=== PATIENT | male | born 1940 | race Caucasian/White ===

== ENCOUNTER 2024-04-29 15:52 | Emergency (ER) | payer MEDICARE, SELFPAY ==
[2024-04-29 16:00] VITALS: BP 154/68; PULSE 88; RESP 18; TEMP 36.6; O2SAT 98; BMI 27.7
--- NOTE | 2024-04-29 16:26 | CRLHL7_ITS ---
For Patients: As a result of the Century Cures Act, medical imaging exams and procedure reports are released immediately into your electronic medical record. You may view this report before your referring provider. If you have questions, please contact your health care provider. INDICATION: Concerns for pneumonia. TECHNIQUE: CT chest without contrast. COMPARISON: None. FINDINGS: Lungs and pleura: Focal right lower lobe mixed solid and ground-glass consolidation. Trace right pleural effusion. Multiple right lower lobe pulmonary nodules with largest measuring 2.2 centimeters (series 5/image 83) which have a somewhat tubular appearance which could suggest chronic bronchial mucous impaction. No pneumothoraces. Heart and vasculature: Heart size is normal. Coronary artery calcifications. Thoracic aorta and pulmonary artery are normal in caliber. Lymph nodes/mediastinum: Moderate hiatal hernia. Indeterminate 1.9 centimeters soft tissue lesion adjacent to the GE junction (series 2/image 80). Additional indeterminate 3.3 centimeter prevascular lesion (series 2/image 45). Otherwise, no mediastinal, hilar, or axillary adenopathy. Chest wall: Left chest wall pacemaker device. No masses. Upper abdomen: Tiny 1.9 centimeter left superior pole renal hyperdense lesion, possibly proteinaceous cyst. No significant findings. Bones: Unremarkable for age. IMPRESSION: Focal right lower lobe mixed solid and ground-glass consolidation with trace right pleural effusion, possibly pneumonia in the appropriate clinical setting. Additional moderate hiatal hernia which could predispose to aspiration as etiology. Recommend follow-up CT scan after 3 months to evaluate for resolution as focal mass with adjacent lymphangitic spread not entirely excluded. Multiple indeterminate right lower lobe pulmonary nodule with largest measuring 2.2 centimeters. These have a somewhat tubular appearance which could suggest chronic bronchial mucous impaction. Correlation with prior imaging would be helpful if available. If not, recommend short-term follow-up CT in 3 months after treatment to evaluate for interval change. Indeterminate 1.9 centimeter soft tissue lesion adjacent to the GE junction and indeterminate 3.3 centimeter prevascular lesion, possibly lymph nodes. These could be followed up with on subsequent CT as well. Please note that all CT scans at this facility use dose modulation, iterative reconstruction, and/or weight-based dosing when appropriate to reduce radiation dose to as low as reasonably achievable. Dictated by Edis Coto MD @ 04/29/2024 5:15:12 PM (Electronically Signed)
--- NOTE | 2024-04-29 16:45 | ED.GENADULT ---
HPI - General Adult General Date Seen: 04/29/24 Chief complaint: Cough Stated complaint: light headed, cough Time Seen by Provider: 04/29/24 15:57 Source: patient Mode of arrival: ambulatory Limitations: no limitations History of Present Illness HPI narrative: Patient is an 19-year-old male presenting to the emergency department for cough and fatigue. He is concerned he could have pneumonia. Patient states for the past few days he has been having a cough producing white or yellow sputum in a mild frontal headache. He is not aware of any sick contacts but does states he had diarrhea 4 days ago. He states he is now having normal bowel movements in the diarrhea only lasted about 12 hours. States he feels well hydrated and has been drinking plenty of fluids. Denies fevers, chills, chest pain, shortness of breath, abdominal pain, diarrhea, constipation, weakness, numbness. Does states he feels fatigued. No other concerns noted at this time. Quit smoking over 50 years ago. Denies any heart or lung issues. Has not noticed any lower extremity swelling. No history of blood clots. Denies hemoptysis Related Data Home Medications ?Medication ?Instructions ?Recorded ?Confirmed atorvastatin 40 mg tablet 40 mg PO DAILY 04/29/24 04/29/24 carvedilol 25 mg tablet 25 mg PO BID 04/29/24 04/29/24 fluticasone propionate 50 1 spray intranasal DAILY 04/29/24 04/29/24 mcg/actuation nasal spray,suspension lisinopril 20 mg tablet 20 mg PO DAILY 04/29/24 04/29/24 omeprazole 40 mg capsule,delayed 40 mg PO DAILY 04/29/24 04/29/24 release Previous Rx's ?Medication ?Instructions ?Recorded amoxicillin 875 mg-potassium 1 tab PO BID #10 tabs 04/29/24 clavulanate 125 mg tablet azithromycin 250 mg tablet See Rx Instructions PO .COMPLEX #6 04/29/24 (Zithromax) tabs Review of Systems Status of ROS: Reports: 10 or more systems reviewed and unremarkable except as noted in History and below Exam Narrative: Exam Narrative: Const: Well-nourished, Well-developed, in mild distress Eyes: PERRL, no conjunctival injection, and symmetrical lids HENT: Atraumatic external nose and ears. Moist mucous membranes. Neck: Symmetric, trachea midline, No thyromegaly. CVS: RRR, No murmurs or gallops. Peripheral pulses 2+ and equal in all extremities RESP: Unlabored respiratory effort. Clear to auscultation bilaterally. GI: Nontender/Nondistended, No rebound or guarding. MSK:Extremities w/o deformity, Normal Active ROM Skin: Warm, Dry. No rashes or lesions. Neuro: Normal Muscle tone, No focal neurological deficits. Psych: Awake, Alert, & Oriented x3. Appropriate mood and affect. Const: Vital Signs, click to edit/add: Vital Signs - 24 hr 04/29/24 16:00 Temperature 97.9 F Pulse Rate [Pulse Oximeter] 88 Respiratory Rate 18 Blood Pressure [Ri ght Upper Arm] 154/68 H Pulse Oximetry 98 Oxygen Delivery Me thod Room Air Course Vital Signs Vital signs: Initial Vital Signs Temperature 97.9 F 04/29/24 16:00 Temperature Source Temporal Artery Scan 04/29/24 16:00 Pulse Rate 88 04/29/24 16:00 Respiratory Rate 18 04/29/24 16:00 Blood Pressure 154/68 H 04/29/24 16:00 Blood Pressure Mean 96 04/29/24 16:00 Pulse Oximetry 98 04/29/24 16:00 Oxygen Delivery Method Room Air 04/29/24 16:00 Vital Signs Temperature 97.9 F 04/29/24 16:00 Pulse Rate 88 04/29/24 16:00 Respiratory Rate 18 04/29/24 16:00 Blood Pressure 154/68 H 04/29/24 16:00 Pulse Oximetry 98 04/29/24 16:00 Oxygen Delivery Method Room Air 04/29/24 16:00 Temperature 97.9 F 04/29/24 16:00 Pulse Rate 88 04/29/24 16:00 Respiratory Rate 18 04/29/24 16:00 Blood Pressure 154/68 H 04/29/24 16:00 Pulse Oximetry 98 04/29/24 16:00 Oxygen Delivery Method Room Air 04/29/24 16:00 Medical Decision Making MDM Narrative Medical decision making narrative: Patient is an 83-year-old male presenting to emergency department for cough and fatigue. Cough could be related to a pneumonia or viral illness. Will do a CT scan to better evaluate this. Will also order COVID/flu/RSV. While unlikely I do think we should do an EKG and troponin to check for signs of ACS. Considering he is not having hemoptysis and no shortness of breath PE feels unlikely. BMP and CBC you will also be ordered. Lab work returned with elevated white count 12.33. He does not meet SIRS criteria at this time. CT scan of the chest shows what appears to be a pneumonia based on the appearance and the clinical presentation. Her curb 66 he is recommended for the inpatient or outpatient therapy for considering how well he looks I do believe he is safe for outpatient therapy. Patient overall is feeling well. States he does not have primary care in [place] was heading back to [place] in a couple weeks. It has seen a mechanical project engineer in the area though next week. He will be discharged with antibiotics and he is agreeable to this plan. Lab Data Labs: Lab Results 04/29/24 04/29/24 Range/Units 16:41 Unknown WBC 12.33 H (4.50-11.00) K/uL RBC 3.74 L (4.30-5.90) m/uL Hgb 11.2 L (13.5-17.5) gm/dL Hct 33.9 L (37.0-53.0) % MCV 91 (80-100) fL MCH 30 (26-34) pg MCHC 33 (32-36) gm/dL RDW Coeff of [place] 12.7 (11.5-15.5) % Plt Count 202 (140-440) K/uL Neut % (Auto) 68.1 (42.0-72.0) % Lymph % (Auto) 18.2 L (20-44) % [place] % (Auto) 7.4 (0.0-11.0) % Eos % (Auto) 4.2 (0.0-7.0) % Baso % (Auto) 0.2 (0.0-3.0) % Neut # (Auto) 8.40 H (1.7-7.0) K/uL Lymph # (Auto) 2.20 (0.90-2.90) K/uL [place] # (Auto) 0.90 (0.00-0.90) K/UL Eos # (Auto) 0.50 (0.00-0.50) K/uL Baso # (Auto) 0.00 (0.00-0.30) K/uL Abs Immat Gran (auto) 0.20 (0.00-0.30) K/uL Imm/Tot Granulo (auto) 1.9 % Sodium 135 (135-149) mmol/L Potassium 4.1 (3.6-5.1) mmol/L Chloride 102 (96-114) mmol/L Carbon Dioxide 26 (20-32) mmol/L Anion Gap 7 (7-15) mEq/L BUN 20 (7-30) mg/dL Creatinine 1.1 (0.5-1.5) mg/dL Estimated Creat Clear 58.51 Estimated GFR 67 ml/min Glucose 98 (60-115) mg/dL Calcium 9.2 (8.4-10.6) mg/dL SARS-CoV-2 (PCR) Negative SARS-CoV-2 (Negative) Influenza Type A (PCR) Negative PCR FLU A (Negative) Influenza Type B (PCR) Negative PCR FLU B (Negative) RSV (PCR) Negative PCR RSV (Negative) POC Troponin I 0.00 L (0.01-0.04) ng/ml Imaging Data CT scan - chest: Attestation: I have reviewed the pertinent imaging results. Radiologist's impression: Focal right lower lobe mixed solid and ground-glass consolidation with trace right pleural effusion, possibly pneumonia in the appropriate clinical setting. Additional moderate hiatal hernia which could predispose to aspiration as etiology. Recommend follow-up CT scan after 3 months to evaluate for resolution as focal mass with adjacent lymphangitic spread not entirely excluded. Multiple indeterminate right lower lobe pulmonary nodule with largest measuring 2.2 centimeters. These have a somewhat tubular appearance which could suggest chronic bronchial mucous impaction. Correlation with prior imaging would be helpful if available. If not, recommend short-term follow-up CT in 3 months after treatment to evaluate for interval change. Indeterminate 1.9 centimeter soft tissue lesion adjacent to the GE junction and indeterminate 3.3 centimeter prevascular lesion, possibly lymph nodes. These could be followed up with on subsequent CT as well. Please note that all CT scans at this facility use dose modulation, iterative reconstruction, and/or weight-based dosing when appropriate to reduce radiation dose to as low as reasonably achievable. Dictated by Edis Coto MD @ 04/29/2024 5:15:12 PM ECG Data Attestation: I personally reviewed and interpreted this ECG as follows: Prior ECG tracings: available for review Interpretation: A ventricular paced rhythm with a rate of 71 beats per minute, normal axis, no ST or T-wave abnormalities. Appropriate discordance Discharge Plan Discharge Clinical Impression: Pneumonia Qualifiers: Pneumonia type: due to unspecified organism Laterality: right Lung location: lower lobe of lung Qualified Code(s): J18.9 - Pneumonia, unspecified organism Patient Disposition: Home, Self-Care Condition: Stable Instructions: Community Acquired Pneumonia (DC) Additional Instructions: Appears you have pneumonia. Return to emergency department for re-evaluation of symptoms are worsening. There were some incidental findings on your CT that he may want to follow-up with your primary care provider we back for the with. They include: Multiple indeterminate right lower lobe pulmonary nodule with largest measuring 2.2 centimeters. These have a somewhat tubular appearance which could suggest chronic bronchial mucous impaction. Correlation with prior imaging would be helpful if available. If not, recommend short-term follow-up CT in 3 months after treatment to evaluate for interval change. Indeterminate 1.9 centimeter soft tissue lesion adjacent to the GE junction and indeterminate 3.3 centimeter prevascular lesion, possibly lymph nodes. These could be followed up with on subsequent CT as well. Prescriptions: New azithromycin [Zithromax] 250 mg tablet See Rx Instructions .ROUTE .COMPLEX Qty: 6 0RF Rx Instructions: For 250 mg dose pack: take 500 mg today (day 1), then 250 mg for 4 days (days 2-5) amoxicillin-pot clavulanate 875-125 mg tablet 1 tab PO BID Qty: 10 0RF No Action atorvastatin 40 mg tablet 40 mg PO DAILY carvedilol 25 mg tablet 25 mg PO BID lisinopril 20 mg tablet 20 mg PO DAILY omeprazole 40 mg capsule,delayed release(DR/EC) 40 mg PO DAILY fluticasone propionate 50 mcg/actuation spray,suspension 1 spray INTRANASAL DAILY Follow Up/Referrals: Provider,Not a Local [Primary Care Provider] - Stand Alone Forms: [employer] Info Instructions
[2024-04-29 16:46] LABS: Basophils Percent Auto 0.2 % (0.0-3.0); Eosinophils Percent Auto 4.2 % (0.0-7.0); Hematocrit 33.9 % (37.0-53.0); Hemoglobin* 11.2 gm/dL (13.5-17.5); Immature Granulocytes Pct Auto 1.9 %; Lymphocytes Percent Auto 18.2 % (20-44); Mean Corpuscular HGB Conc 33 gm/dL (32-36); Mean Corpuscular Hemoglobin 30 pg (26-34); Mean Corpuscular Volume 91 fL (80-100); Monocytes Percent Auto 7.4 % (0.0-11.0); Neutrophils Percent Auto 68.1 % (42.0-72.0); Platelet Count* 202 K/uL (140-440); RDW Coefficient of Variation % 12.7 % (11.5-15.5); Red Blood Count 3.74 m/uL (4.30-5.90); White Blood Count* 12.33 K/uL (4.50-11.00)
[2024-04-29 16:52] LABS: PCR FLU A Negative PCR FLU A (Negative); PCR FLU B Negative PCR FLU B (Negative); PCR RSV Negative PCR RSV (Negative); SARS PCR* Negative SARS-CoV-2 (Negative)
--- OUTSIDE RECORDS SUMMARY | 2024-04-29 16:57 | XMS_ITS | Clinical Summary ---
Author Organization [place] [facility] Address [address] [place] [address] Care Team Providers Care Feed In Worker Name Role Phone Salvador Rivera MD Primary Care Provider [phone] Allergies Active Allergy Reactions Criticality Noted Date Comments Penicillins 02/03/2018 Medications Medication Sig Dispensed Refills Start Date End Date Status CARVEDILOL PO Take 25 mg by mouth Active LISINOPRIL PO Take 5 mg by mouth Active ATORVASTATIN CALCIUM PO Take 40 mg by mouth Active ASPIRIN PO Take 81 mg by mouth Active OMEPRAZOLE PO Take 40 mg by mouth Active multivitamin, therapeutic with minerals (MULTI-VITAMIN) TABS tablet Take 1 tablet by mouth daily Active cetirizine (ZYRTEC) 10 MG tablet Take 10 mg by mouth daily Active GLUCOSAMINE SULFATE PO Ac tive Resolved Problems Problem Noted Date Diagnosed Date Resolved Date Rotator cuff (capsule) sprain 09/01/2007 12/16/2007 Other postprocedural status(V45.89) 09/01/2007 12/16/2007 Social History Tobacco Use Types Packs/Day Years Used Date Smoking Tobacco: Never Smokeless Tobacco: Never Alcohol Use Standard Drinks/Week Comments Yes 0 (1 standard drink = 0.6 oz pur e alcohol) 1 drink/day Sex and Gender Information Value Date Recorded Sex Assigned at Not on file Gender Identity Not on file Sexual Orientation Not on file Last Filed Vital Signs Vital Sign Reading Time Taken Comments Blood Pressure 133/80 02/03/2018 1:50 PM CDT Pulse - - Temperature - - Respiratory Rate 19 02/03/2018 1:50 PM CDT Oxygen Saturation 97% 02/03/2018 1:50 PM CDT Inhaled Oxygen Concentration - - Weight 94.8 kg (209 lb) 02/03/2018 11:40 AM CDT Height 185.4 cm (6' 1) 02/03/2018 11:40 AM CDT Body Mass Index 27.57 02/03/2018 11:40 AM CDT Plan of Treatment Not on file Care Teams Feed In Worker Relationship Specialty Start Date End Date Salvador Rivera MD [facility] [address] [place] [address] PCP - General Family Practice 02/03/18
--- OUTSIDE RECORDS SUMMARY | 2024-04-29 16:57 | XMS_ITS | Clinical Summary ---
Author Organization [facility] Address [address] [place] [address] Care Team Providers Care Application Developer Name Role Phone Russell Rodgers D.O. Primary Care Provider [phone] Allergies Active Allergy Reactions Criticality Noted Date Comments Penicillins Rash High 07/26/2019 Medications Medication Sig Dispensed Refills Start Date End Date Status omeprazole (PRILOSEC) 40 MG delayed release capsule Take 40 mg by mouth every morning (before breakfast). Active cetirizine (ZYRTEC) 5 MG tablet Take 5 mg by mouth 2 times daily. Active carvedilol (COREG) 25 MG tablet Take 25 mg by mouth 2 times daily (with meals). Active lisinopril (PRINIVIL,ZESTRIL) 5 MG tablet Take 5 mg by mouth daily. Active atorvastatin (LIPITOR) 40 MG tablet Take 40 mg by mouth daily. Active Active Problems Problem Noted Date Diagnosed Date Abscess of arm, right 07/27/2019 Last Assessment & Plan: Most likely secondary to insect bite Patient afebrile Underwent I& D at ER w/o complications Has not start with abx yet, he is going today to the pharmacy to pick them up Patient states pain is tolerable Patient denies any arm numbness or tingling Wound care performed today Bite wound of right upper arm 07/27/2019 Last Assessment & Plan: complicated with skin abscess S/p I&D On bactrim and keflex Pain tolerable Afebrile, no chills, minimal drainage Family History Medical History Relation Name Comments Pacemaker Father Cancer Mother Relation Name Status Comments Father Mother Social History Tobacco Use Types Packs/Day Years Used Date Smoking Tobacco: Never Smokeless Tobacco: Never Tobacco Cessation:Counseling Given: Not Answered Alcohol Use Standard Drinks/Week Comments Yes 0 (1 standard drink = 0.6 oz pur e alcohol) shot of scotch AUDIT-C Answer Date Recorded Frequency of Alcohol Consumption 4 or more times a week 09/25/2020 Average Number of Drinks 1 or 2 021 Frequency of Binge Drinking Not on file 10/2020 Sex and Gender Information Value Date Recorded Sex Assigned at Not on file Gender Identity Not on file Sexual Orientation Not on file Last Filed Vital Signs Vital Sign Reading Time Taken Comments Blood Pressure 167/81 08/25/2022 10:20 AM EST Pulse 60 08/25/2022 10:20 AM EST Temperature 36.2 ??C (97.1 ??F) 08/25/2022 9:59 AM ES T Respiratory Rate 17 08/25/2022 10:20 AM EST Oxygen Saturation 100% 08/25/2022 10:20 AM EST Inhaled Oxygen Concentration - - Weight 98 kg (216 lb) 08/25/2022 7:42 AM EST Height 185.4 cm (6' 1) 08/25/2022 7:42 AM EST Body Mass Index 28.5 08/25/2022 7:42 AM EST Plan of Treatment Health Maintenance Due Date Last Done Comments MEDICARE WELLNESS EXAM 1959 ZOSTER (SHINGLES) (1 of 2) 1991 RSV Immunization - age 60 years and older or (1 - 1-dose 60+ series) 2001 INFLUENZA (#1) 2024 06/20/2020, 05/23, 07/25/2018, Additional history exists COVID-19 Vaccine (2022-24 season) 2024 TETANUS/DIPHTHERIA 02/17/2028 02/16/2018 PNEUMOCOCCAL (65y+) Completed 09/22/2016, 6 RSV Immunization < 20 months Aged Out No longer eligible based on patient's age to complete this topic Advance Directives For more information, please contact: [phone] Healthcare Agents on File Name Relationship Healthcare Agent Relationship Communication Manasa Emerson Patient Rn Testing Stated Representa tive Care Teams Application Developer Relationship Specialty Start Date End Date Russell Rodgers D.O. [address] [place] [address] PCP - General Family Medicine 08/13/22
--- OUTSIDE RECORDS SUMMARY | 2024-04-29 16:57 | XMS_ITS | Clinical Summary ---
Author Organization [facility] Address [place], [place] [address] Care Team Providers Care Bleach Range Operator Name Role Phone Salvador Rivera MD Primary Care Provider Unavail able Leon Israel MD Unavailable [phone] Allergies Active Allergy Reactions Criticality Noted Date Comments Penicillins Hives 08/23/2012 Medications Medication Sig Dispensed Refills Start Date End Date Status aspirin 81 mg tablet Take 81 mg by mouth once daily with a meal. Active multivitamin (MVI) tablet Take 1 tablet by mouth once daily. Active omeprazole (PRILOSEC) 40 mg capsule Take 1 capsule by mouth once daily. 0 01/31/2014 Active cetirizine (ZYRTEC) 10 mg tablet Take 10 mg by mouth once daily if needed. Active atorvastatin (LIPITOR) 40 mg tabletIndications:Hype rlipidemia, unspecified hyperlipidemia type Take 1 Tablet (40 mg) by mouth once daily. 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 [address] [place] [address] Leon Israel MD Refill Request (Lisinopril) 02/25/[address] [facility] [address] [place] [address] Device Check (Remote [employer] ICD... 02/08/2024 4:00 PM CDT Office Visit [facility] [address] [place] [address] Leon Israel MD Follow Up (annual f/u, echo 02/02- spot okay per Romi); Concerns (Patient denies chest pain, shortness of breath, and dizziness. Patient said he exercises regularly. ) 02/08/2024 Travel 02/03/2024 8:38 AM CDT - 02/03/2024 11:59 PM CDT Hospital Encounter [facility] [address] [place] [address] Leon Israel MD Aortic valve insufficiency, etiology of cardiac valve disease unspecified 02/03/2024 Travel from Last 3 Months Social History Tobacco Use Types Packs/Day Years Used Date Smoking Tobacco: Former Cigarettes 2 10 0 08/23/1957 - 08/23/1967 Smokeless Tobacco: Never Alcohol Use Standard Drinks/Week Comments Yes 5.8 (1 standard drin k = 0.6 oz pure alcohol) 1-2 per day either wine liquor or beer Social Connections Answer Date Recorded Frequency of Communication with Friends and Fami ly Not on file 08/23/2021 Financial Resource Strain Answer Date R ecorded Difficulty of Paying Living Expenses Not on file 08/23/2021 Difficulty of Paying Living Expenses Not on file 08/23/2021 Sex and Gender Information Value Date Recorded Sex Assigned at Not on file Gender Identity Not on file Sexual Orientation Not on file Obstetrics History Last Filed Vital Signs Vital Sign Reading Time Taken Comments Blood Pressure 164/66 02/08/2024 3:38 PM CDT Pulse 60 02/08/2024 3:38 PM CDT Temperature 36.6 ??C (97.8 ??F) 02/21/2015 1:46 PM CD T Respiratory Rate 16 02/08/2024 3:38 PM CDT Oxygen Saturation 99% 02/08/2024 3:38 PM CDT Inhaled Oxygen Concentration - - Weight 100.7 kg (222 lb) 02/08/2024 3:38 PM CDT Height 185.4 cm (6' 1) 02/08/2024 3:38 PM CDT Body Mass Index 29.29 02/08/2024 3:38 PM CDT Plan of Treatment Upcoming Encounters Date Type Department Care Team (Late st Contact Info) Description 06/01/2024 10:20 AM CDT Appointment [address] [place] [address] 06/02/[address] [facility] [address] [place] [phone] Health Maintenance Due Date Last Done Comments Pneumococcal series for age 65+ (1 of 2 - PCV) 1947 Tdap 1952 Depression screening for age 12+ 1953 Tetanus booster 1961 Zoster (shingles) series for age 50+ (1 of 2) 1991 RSV vaccine for adults or (1 - 1-dose 60+ series) 2001 Medicare Wellness for age 65+ 2006 COVID-19 vaccine series ( - 2022- season) 2024 Influenza for age 65+ 04/23/2024 BMI (ht and wt on same day) for age 18+ 02/07/2025 02/08/2024, 02/03/2023, 04/23/2021, Additional history exists Medical Devices Implanted Type Area Business Analyst Intern Device Identifier Shelf Expiration Date Model / Serial / Lot Marketing Database Consultant-D-02/13/2015 Implanted:02/13 (Quantity not on file) INSULATION INSPECTOR-D [employer] [id number] / / Procedures Procedure Name Priority Date/Time Associated Diagnosis Comments ECHO TTE COMPLETE WO CONTRAST Routine 02/03/2024 9:15 AM CDT Aortic valve insufficiency, etiology of cardiac valve disease unspecified from Last 3 Months Results * ECHO TTE COMPLETE WO CONTRAST (02/03/2024 9:15 AM CDT) EJECTION FRACTION 50% PROSOLV Anatomical Region Laterality Modality Ultrasound 02/03/2024 8:45 AM CDT Narrative 02/03/2024 12:52 PM CDT [address], [place] [address] Main: ? Transthoracic Echo Report KI PATSY Esqueda ID: [id number] Age: 83 : 1940 Ordering Provider: LEON ISRAEL Exam Date: 02/03/2024 08:45 Gender: M Boiler Testing Technician: KWABENA Height: 73 in BSA: 2.25 m?? BP: 130 / 58 Weight: 223 lbs BMI: 29.4 kg/m?? HR: 60 Location: [facility] Rhythm: Artificially Paced Procedure Components: 2D imaging, Color Doppler, Spectral Doppler Indications: Aortic valve insufficiency, etiology of cardiac valve disease unspecified Technical Quality: Fair Contrast: None Final Conclusion Previous Study: 02/01/23 1. Severe aortic regurgitation resulting in restricted diastolic opening of the anterior mitral leaflet. - Aortic valve effective regurgitant orifice (PISA) is 0.33 cm??. - Aortic valve regurgitant volume (PISA) is 67.9 mL. - Holodiastolic flow reversal noted in the aorta 2. Normal left ventricular size; mildly reduced systolic function (estimated LVEF 50%). Generalized left ventricular hypokinesis. 3. Normal right ventricular size and function (estimated RVSP 34 mmHg). 4. Left atrial enlargement. 5. Mild dilation of the aortic sinus of Valsalva (4.4 cm). Mild ascending aortic dilation (4.3 cm). When compared to previous report, degree of aortic regurgitation is slightly worse and thought severe. Aortic dimensions are slightly different (previously SoV 4.2 cm and ascending Ao 4.5 cm). Estimated EF: 50% FINDINGS Left Ventricle Normal left ventricular chamber size. Normal left ventricular wall thickness. Normal left ventricular systolic function. Calculated left ventricular ejection fraction (modified Paulino technique) is 51 %. No regional wall motion abnormalities. Abnormal ventricular septal motion due to pacing. Diastolic Function Indeterminate left ventricular diastolic function. Right Ventricle Normal right ventricular chamber size. Normal right ventricular systolic function. Estimated right ventricular systolic pressure is 34 mmHg. Left Atrium Mild left atrial enlargement. Left atrial volume index is 38 ml/m??. Right Atrium Normal right atrial size. Atrial Septum Atrial septum was not well visualized. No evidence of inter-atrial shunt by color flow Doppler. Aortic Valve Trileaflet aortic valve. Aortic valve sclerosis without stenosis. Severe aortic valve regurgitation. 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 Aortic valve effective regurgitant orifice (PISA) is 0.33 cm??. Aortic valve regurgitant volume (PISA) is 67.9 mL. Aortic regurgitation pressure half-time (PHT) is 499 ms. Descending aorta reversal TVI is 13.0 cm. Holodiastolic flow reversal noted. Mitral Valve Mildly calcified mitral annulus. Mildly thickened mitral valve with restricted diastolic opening of the anterior leaflet due to aortic regurgitation. No mitral valve stenosis. Trivial mitral valve regurgitation. Tricuspid Valve Normal tricuspid valve. Mild tricuspid valve regurgitation. Pulmonic Valve Pulmonary valve was not well visualized. No pulmonary valve stenosis. Mild pulmonary valve regurgitation. Pericardium No pericardial effusion. Aorta Aortic sinus of Valsalva is normal in size (4.4 cm, ZScore = 1.8). Normal indexed ascending aorta dimension (4.3 cm, 1.9 cm/m??). Inferior Vena Cava Normal inferior vena cava with normal inspiratory collapse. Other Device lead(s) identified in the right atrium and right ventricle. MEASUREMENTS ??(Male / Female) Normal Values 2D MEASUREMENTS AND LV FUNCTION IVS Diastolic Thickness ? 0.938 cm ?< 1.1 cm / < 1.0 cm LV Diastolic Diameter PLAX ?5.28 cm ? 4.2 - 5.9 / 3.9 - 5.3 cm LV Diastolic Diameter Index ? 2.34 cm/m?? LVPW Diastolic Thickness ?0.892 cm ?< 1.1 cm / < 1.0 cm LV Systolic Diameter PLAX ? 3.92 cm LV Systolic Diameter Index ?1.74 cm/m?? LVOT Diameter ? 2.3 cm LVOT Cardiac Output ? 6.66 l/min LVOT Cardiac Index ?2.89 l/min??m?? LVOT Stroke Volume ?111 ml Stroke Volume Index ? 48.2 ml/m?? LV Ejection Fraction MOD BP ? 50.5 % ?>= 55 ??% LA Volume MOD BP ?86.1 ml LA Volume Index MOD BP ?38.2 ml/m?16 - 34 ml/m?? RV Diastolic Basal Diameter ? 3.99 cm LV Mass ? 177 g LV Mass Index ? 77.6 g/m?? Sinuses of Valsalva Diameter(d) ?? 4.4 cm Ascending Aorta Diameter(s) ? 4.3 cm Ascending Aorta Index ? 1.91 cm/m?? M MODE TAPSE MM ?2.23 cm DIASTOLOGY LV E' Lateral Velocity ?0.0479 m/sec LV E' Septal Velocity ? 0.0348 m/sec AORTIC VALVE AV Peak Velocity ?1.53 m/sec ?< 2.0 m/sec AV Peak Gradient ?9.36 mmHg AV Mean Gradient ?6 mmHg AV Velocity Time Integral ? 37.6 cm LVOT Peak Velocity ?1.13 m/sec LVOT Velocity Time Integral ? 26.7 cm AV Area Cont Eq vti ? 2.95 cm?? AV Area Cont Eq pk ?3.08 cm?? AV Dimensionless Index ?0.711 AI Deceleration Time ?499 msec AI Pressure Half Time ? 499 msec AI ERO PISA ? 0.329 cm?? AI Regurgitant Volume PISA ?67.9 ml AI Regurgitant Fraction PISA ?0.0016 % ?> 50% TRICUSPID VALVE AND ESTIMATED PRESSURES TR Peak Velocity ?2.77 m/sec TR Peak Gradient ?30.7 mmHg Right Atrial Pressure ? 3 mmHg Right Ventricular Systolic Press ??33.7 mmHg HCM DATA LVOT CLEO (r) ?5.14 mmHg Aortic Root ZScore: 1.[address] Curt Wells [address] [facility] Accredited Site (Electronically Signed) Final Date: 03 February 2024 12:52 ICD-10 Codes: I35.1 Procedure Note Curt Wells MD - 02/03/[address], [place] [address] Main: Transthoracic Echo Report PATSY EMERSON Dheeraj ID: [id number] Age: 83 : 1940 Ordering Provider:LEON ISRAEL Exam Date: 02/03/2024 08:45 Gender: M Boiler Testing Technician: KWABENA Height: 73 in BSA: 2.25 m?? BP: 130 / 58 Weight: 223 lbs BMI: 29.4 kg/m?? HR: 60 Location: [facility] Rhythm: ArtificiallyPaced Procedure Components: 2D imaging, Color Doppler, Spectral Doppler Indications: Aortic valve insufficiency, etiology of cardiac valvedisease unspecified Technical Quality: Fair Contrast: None Final Conclusion Previous Study: 02/01/23 1. Severe aortic regurgitation resulting in restricted diastolic openingof the anterior mitral leaflet. - Aortic valve effective regurgitant orifice (PISA) is 0.33 cm??. - Aortic valve regurgitant volume (PISA) is 67.9 mL. - Holodiastolic flow reversal noted in the aorta 2. Normal left ventricular size; mildly reduced systolic function(estimated LVEF 50%). Generalized left ventricular hypokinesis. 3. Normal right ventricular size and function (estimated RVSP 34 mmHg). 4. Left atrial enlargement. 5. Mild dilation of the aortic sinus of Valsalva (4.4 cm). Mild ascendingaortic dilation (4.3 cm). When compared to previous report, degree of aortic regurgitation isslightly worse and thought severe. Aortic dimensions are slightly different (previously SoV 4.2 cm and ascending Ao 4.5 cm). Estimated EF: 50% FINDINGS Left Ventricle Normal left ventricular chamber size. Normal leftventricular wall thickness. Normal left ventricular systolic function. Calculated left ventricular ejection fraction (modified Simpsontechnique) is 51 %. No regional wall motion abnormalities. Abnormal ventricular septal motion due to pacing. Diastolic Function Indeterminate left ventricular diastolic function. Right Ventricle Normal right ventricular chamber size. Normal rightventricular systolic function. Estimated right ventricular systolic pressure is 34 mmHg. Left Atrium Mild left atrial enlargement. Left atrial volume index is 38ml/m??. Right Atrium Normal right atrial size. Atrial Septum Atrial septum was not well visualized. No evidence ofinter-atrial shunt by color flow Doppler. Aortic Valve Trileaflet aortic valve. Aortic valve sclerosis withoutstenosis. Severe aortic valve regurgitation. 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 Aortic valve effective regurgitantorifice (PISA) is 0.33 cm??. Aortic valve regurgitant volume (PISA) is 67.9 mL. Aortic regurgitation pressurehalf-time (PHT) is 499 ms. Descending aorta reversal TVI is 13.0 cm. Holodiastolic flow reversal noted. Mitral Valve Mildly calcified mitral annulus. Mildly thickened mitralvalve with restricted diastolic opening of the anterior leaflet due to aortic regurgitation. No mitral valve stenosis. Trivialmitral valve regurgitation. Tricuspid Valve Normal tricuspid valve. Mild tricuspid valveregurgitation. Pulmonic Valve Pulmonary valve was not well visualized. No pulmonaryvalve stenosis. Mild pulmonary valve regurgitation. Pericardium No pericardial effusion. Aorta Aortic sinus of Valsalva is normal in size (4.4 cm, ZScore = 1.8).Normal indexed ascending aorta dimension (4.3 cm, 1.9 cm/m??). Inferior Vena Cava Normal inferior vena cava with normal inspiratorycollapse. Other Device lead(s) identified in the right atrium and rightventricle. MEASUREMENTS (Male / Female) Normal Values 2D MEASUREMENTS AND LV FUNCTION IVS Diastolic Thickness 0.938 cm < 1.1 cm / < 1.0cm LV Diastolic Diameter PLAX 5.28 cm 4.2 - 5.9 / 3.9 -5.3 cm LV Diastolic Diameter Index 2.34 cm/m?? LVPW Diastolic Thickness 0.892 cm < 1.1 cm / < 1.0cm LV Systolic Diameter PLAX 3.92 cm LV Systolic Diameter Index 1.74 cm/m?? LVOT Diameter 2.3 cm LVOT Cardiac Output 6.66 l/min LVOT Cardiac Index 2.89 l/min??m?? LVOT Stroke Volume 111 ml Stroke Volume Index 48.2 ml/m?? LV Ejection Fraction MOD BP 50.5 % >= 55 % LA Volume MOD BP 86.1 ml LA Volume Index MOD BP 38.2 ml/m?? 16 - 34 ml/m?? RV Diastolic Basal Diameter 3.99 cm LV Mass 177 g LV Mass Index 77.6 g/m?? Sinuses of Valsalva Diameter(d) 4.4 cm Ascending Aorta Diameter(s) 4.3 cm Ascending Aorta Index 1.91 cm/m?? M MODE TAPSE MM 2.23 cm DIASTOLOGY LV E' Lateral Velocity 0.0479 m/sec LV E' Septal Velocity 0.0348 m/sec AORTIC VALVE AV Peak Velocity 1.53 m/sec < 2.0 m/sec AV Peak Gradient 9.36 mmHg AV Mean Gradient 6 mmHg AV Velocity Time Integral 37.6 cm LVOT Peak Velocity 1.13 m/sec LVOT Velocity Time Integral 26.7 cm AV Area Cont Eq vti 2.95 cm?? AV Area Cont Eq pk 3.08 cm?? AV Dimensionless Index 0.711 AI Deceleration Time 499 msec AI Pressure Half Time 499 msec AI ERO PISA 0.329 cm?? AI Regurgitant Volume PISA 67.9 ml AI Regurgitant Fraction PISA 0.0016 % > 50% TRICUSPID VALVE AND ESTIMATED PRESSURES TR Peak Velocity 2.77 m/sec TR Peak Gradient 30.7 mmHg Right Atrial Pressure 3 mmHg Right Ventricular Systolic Press 33.7 mmHg HCM DATA LVOT CLEO (r) 5.14 mmHg Aortic Root ZScore: 1.80 Curt Wells MD [facility] Accredited Site (Electronically Signed) Final Date: 03 February 2024 12:52 ICD-10 Codes: I35.1 Leon Israel MD ECHO ORD from Last 3 Months Advance Directives * Full Code (Latest Code Status on File) Date Activated Date Inactivated Comments 02/13/2015 9:08 AM 02/14/2015 1:13 PM * Full Code Date Activated Date Inactivated Comments 01/02/2013 8:52 AM 01/02/2013 4:17 PM Care Teams Bleach Range Operator Relationship Specialty Start Date End Date Salvador Rivera MD PCP - General Family Practice 12/27/13 [place] [id number] [place] [address] Consulting Physician Cardiovascular Disease 05/22/15
--- OUTSIDE RECORDS SUMMARY | 2024-04-29 16:57 | XMS_ITS | Data Portability ---
Author Organization [place] - [employer], [employer], [employer] [facility] Address [address] [place] [address] Care Team Providers Care External Grinder Tool Name Role Phone MARGRET ARGUETA Primary Care Provider MARGRET ARGUETA Referring Provider [phone] ASHLEY SWAN Educational Director Assessment No assessment recorded. Plan of Treatment Reminders Order Date Submit Date Provider Last Modified By Organization Details Last Modified Time Details Appointments None recorded. Lab CMP, serum or plasma 2022 023 [place] [employer], [address], [place], [address], 3 16:02:35 CBC 2022 023 [place] [employer], [address], [place], [address], 3 16:02:34 lipid panel, serum 2022 023 [place] [employer] [facility], [address], [place], [address], 3 16:02:36 HbA1c (hemoglobi n A1c), blood [email or web address] [facility], [address], [place], [address], 4 13:09:56 lipid panel, serum 2022 024 [email or web address] [facility], [address], [place], [address], 4 06:28:42 CMP, serum or plasma 2022 024 [email or web address] [facility], [address], [place], [address], 4 06:28:32 CBC 2022 024 [email or web address] [facility], [address], [place], [address], 4 06:28:24 PSA, serum or plasma 2022 023 [email or web address] [facility], [address], [place], [address], 3 16:17:46 lipid panel, serum 2022 024 [facility], [address], [place], [address], 4 05:39:48 CMP, serum or plasma 2022 024 RYAN [facility], [address], [place], [address], 4 05:39:49 CBC 2022 024 RYAN [facility], [address], [place], [address], 4 05:40:06 venipunctu re 2022 024 R[facility], [address], [place], [address], 4 05:40:08 PSA, serum or plasma 2022 024 [facility], [address], [place], [address], 4 05:40:09 HbA1c (hemoglobi n A1c), blood 2022 024 [facility], [address], [place], [address], 4 05:40:10 HbA1c (hemoglobi n A1c), blood 2023 024 [place] [facility], [address] [place] [address], [address], 4 06:37:46 lipid panel, serum 2023 024 [facility], [address] [place] [address], [address], 4 06:37:44 CMP, serum or plasma 2023 024 [place] [facility], [address] [place] [address], [address], 4 06:37:45 CBC w/ auto diff 2023 024 [place] [facility], [address] [place] [address], [address], 4 06:37:47 TSH, serum or plasma 2023 024 [place] [facility], [address] [place] [address], [address], 4 06:37:46 urinalysis complete, reflex culture 2023 024 [place] [facility], [address] [place] [address], [address], 4 06:37:47 HbA1c (hemoglobi n A1c), blood 2023 024 [place] [facility], [address] [place] [address], [address], 4 20:47:11 CMP, serum or plasma 2023 024 [facility], [address] [place] [address], [address], 4 20:47:12 lipid panel, serum 2023 024 [email or web address], [address] [place] [address], [address], 4 20:45:32 CMP, serum or plasma 2023 024 [email or web address] 1 [facility], [address] [place] [address], [address], 4 20:45:27 urinalysis , complete 2023 024 [email or web address] 1 [facility], [address] [place] [address], [address], 4 20:45:28 protein:cr eatinine ratio, urine 2023 024 [email or web address] 1 [facility], [address] [place] [address], [address], 4 20:45:28 uric acid, serum or plasma 2023 024 [email or web address] 1 [facility], [address] [place] [address], [address], 4 20:45:29 Referral None recorded. Procedures None recorded. Surgeries None recorded. Imaging US, kidney - please schedule in [place], [place] 2023 024 [email or web address] 1 [facility], [address], [address], [place], [address], 4 20:45:30 Medication Orders omeprazole 40 mg capsule,de layed release 2022 023 RYAN [facility] ([facility]), [facility], [place], [address], 3 09:50:52 omeprazole 40 mg capsule,de layed release 2022 023 [email or web address] [facility] ([facility]), [facility], [place], [address], 3 12:39:04 omeprazole 40 mg capsule,de layed release 2022 023 [facility] #[id number], [address], [place], [address], 3 09:43:55 fluticason e propionate 50 mcg/actuat ion nasal spray,susp ension 2023 024 [facility] #1067, [address], [place], [address], 4 12:08:49 omeprazole 40 mg capsule,de layed release 2023 024 [email or web address] 1 [facility] #[id number], [address], [place], [address], 4 12:08:53 Patient TargetsNo targets recorded. Patient Instructions Encounter Date Encounter Id Patient Instructions Last Modified By Organization Details Last Modified Time 10/07/2022 [id number] anemia: care instructions [email or web address] Not available 10/07/2022 09:50:46 high cholesterol : care instructions kredenius Not available 10/07/2022 09:50:47 12/22/2022 [id number] high cholesterol : care instructions kredenius Not available 12/22/2022 09:52:34 07/06/2023 [id number] starting a weigh t loss plan: care instructions Not available 07/06/2023 09:45:14 high cholesterol : care instructions Not available 07/06/2023 09:43:53 cota's esophagus: care instructions Not available 07/06/2023 09:46:32 03/24/2024 [id number] SCREENING SCHEDULE DEPRESSION SCREENING: {{A Depression Screening Assessment was conducted, with staff-assisted depression care supports during this encounter and all actions of this assessment and time elements of up to 15 minutes were met.* Not necessary, patient diagnosed with depression up-to- date}} COLORECTAL CANCER SCREENING: {{Colonoscopy, average risk, every 10 years unless advised differently by provider* Patient refuses Colonoscopy, alternate screening recommended Colon oscopy, increased risk, every 5 years Colonoscopy , significantly increased risk, 3 years Cologuard every 3 years for average risk patients Colonosc opy, high risk, 1 year IFOBT annually, refuses colonoscopy no longer recommended patient refuses further screenings up-to- date (view surgical history for recommendations)} } CERVICAL CANCER SCREENING - PAP (female only): {{no longer recommended due to hysterectomy, age, and/or low risk unless advised differently by provider* history of abnormal paps, 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 pt refuses further screening up-to-d ate N/A}} BREAST CANCER SCREENING: Mammogram: {{recommended annually unless advised differently by provider* bi-david ally no longer recommended due to mastectomy and/or age patient refuses further screening up-to-d ate N/A}} OSTEOPOROSIS SCREENING - Bone density (female only): {{every 2 years pt refuses further screening up-to-d ate N/A At age 65 and every 2 years or as advised by your provider*}} CARDIOVASCULAR RISK SCREENING - AAA screening (male only): {{up-to-date N/A recommended due to family history of AAA not recommended pt refuses screening Recomme nded once per lifetime, if personal history of smoking greater than 100 cigs and age 65-75*}} VACCINE RECOMMENDATIONS: (except if you have experienced severe allergic reaction [e.g. anaphylaxis] after a previous dose/a component of these vaccines OR otherwise advised by your provider not to receive it) Covid vaccine: {{booster up-to-date not up to date, recommended vaccine/booster p t refuses vaccine/booster not recommended due to co-morbid condition/risk CO VID-19 vaccination up-to-date*}} Influenza vaccine: {{vaccination up to date for current flu season not recommended patie nt refuses vaccine N/A recom mended annually*}} Pneumococcal Vaccine: {{Prevnar 20 recommended up to date* pt refuses vaccine not recommended Prevn ar 15 needed to complete PCV regimen Pneumovax 23 needed to complete PCV regimen}} Shingles vaccine - Shingrix: {{recommended vac cination up to date* not recommended pt refuses vaccine }} Tetanus vaccine: {{recommended every 10 years* recommende d vaccination up to date not recommended patie nt refuses vaccine }} [email or web address] 1 Not available 03/22/2024 16:57:22 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 If a prior auth is required for additional procedures or testing please submit a request directly to patient's insurance Referring Physician: Margret Argueta [facility], Encounter Date: 09/05/2020 Results Created Date Observation Date Name Description Value Unit Range Abnormal Flag Note LastModifiedBy Organization Detail LastModifiedTime 10/16/1910/16/2022 CBC W/ AUTOD IFF, COMPL ETE BLOOD COUNT WBC_I 8.00 3.60-1 0.00 Not Available [facility] [address] [facility] [address] [facility], [place], [address], 10/16/2022 16:02:34 10/16/1910/16/2022 CBC W/ AUTOD IFF, COMPL ETE BLOOD COUNT nucleated RBC 0.20 % 0.00-2 .00 Not Available [facility] [address], [place], [address], 10/16/2022 16:02:34 10/16/19 23 10/16/2022 CBC W/ AUTOD IFF, COMPL ETE BLOOD COUNT RBC 4.12 M/uL 4.10-5 .80 Not Available [facility], [place], [address], 10/16/2022 16:02:34 10/16/19 23 10/16/2022 CBC W/ AUTOD IFF, COMPL ETE BLOOD COUNT hemoglobin 13.0 g/dL 13.2-1 7.0 low Not Available [facility], [place], [address], 10/16/2022 16:02:34 10/16/19 23 10/16/2022 CBC W/ AUTOD IFF, COMPL ETE BLOOD COUNT hematocrit 36.80 % 37.00- 51.00 low Not Available [facility], [place], [address], 10/16/2022 16:02:34 10/16/19 23 10/16/2022 CBC W/ AUTOD IFF, COMPL ETE BLOOD COUNT MCV 89.2 fL 80.0-9 9.0 Not Available [facility], [place], [address], 10/16/2022 16:02:34 10/16/19 23 10/16/2022 CBC W/ AUTOD IFF, COMPL ETE BLOOD COUNT MCH 31.4 pg 27.0-3 3.0 Not Available [facility], [place], [address], 10/16/2022 16:02:34 10/16/19 23 10/16/2022 CBC W/ AUTOD IFF, COMPL ETE BLOOD COUNT MCHC 35.2 g/dL 32.0-3 6.0 Not Available [facility] [address], [place], [address], 10/16/2022 16:02:34 10/16/19 23 10/16/2022 CBC W/ AUTOD IFF, COMPL ETE BLOOD COUNT platelets 186 K/uL 140-44 0 Not Available [facility] [address] [place], [place] [address], [place], [address], 10/16/2022 16:02:34 10/16/19 23 10/16/2022 CBC W/ AUTOD IFF, COMPL ETE BLOOD COUNT RDW_I 13.2 % 11.0-1 5.0 Not Available [facility] [address] [place], [place] [address]y [address], [place], [address], 10/16/2022 16:02:34 10/16/19 23 10/16/2022 CBC W/ AUTOD IFF, COMPL ETE BLOOD COUNT MPV 8.5 fL 7.4-10 .4 Not Available [facility] [address] [place], [place] [address]y [address], [place], [address], 10/16/2022 16:02:34 10/16/19 23 10/16/2022 CBC W/ AUTOD IFF, COMPL ETE BLOOD COUNT neutrophil, percentage 61.5 % 40.0-7 5.0 Not Available [facility] [address] [place] [address], [place], [address], 10/16/2022 16:02:34 10/16/19 23 10/16/2022 CBC W/ AUTOD IFF, COMPL ETE BLOOD COUNT lymphocyte, percentage 27.9 % 15.0-4 5.0 Not Available [facility] [address] [place] [address]y [address], [place], [address], 10/16/2022 16:02:34 10/16/19 23 10/16/2022 CBC W/ AUTOD IFF, COMPL ETE BLOOD COUNT monocyte, percentage 7.3 % Not Available [facility] [address] [place] [address], [place], [address], 10/16/2022 16:02:34 10/16/19 23 10/16/2022 CBC W/ AUTOD IFF, COMPL ETE BLOOD COUNT eosinophil, percentage 2.7 % 1.0-6. 0 Not Available [facility] [address] [place] [address]y [address], [place], [address], 10/16/2022 16:02:34 10/16/19 23 10/16/2022 CBC W/ AUTOD IFF, COMPL ETE BLOOD COUNT basophil, percentage 0.6 % 0.0-2. 0 Not Available [facility] [address] [place] [address]y [address], [place], [address], 10/16/2022 16:02:34 10/16/19 23 10/16/2022 CBC W/ AUTOD IFF, COMPL ETE BLOOD COUNT neutrophil, absolute 4.9 K/uL 1.5-7. 5 Not Available [facility] [address] [place] [address]y [address], [place], [address], 10/16/2022 16:02:34 10/16/19 23 10/16/2022 CBC W/ AUTOD IFF, COMPL ETE BLOOD COUNT lymphocyte, absolute 2.2 K/uL 0.8-4. 0 Not Available [facility] [address] [place] [address]y [address], [place], [address], 10/16/2022 16:02:34 10/16/19 23 10/16/2022 CBC W/ AUTOD IFF, COMPL ETE BLOOD COUNT monocyte, absolute 0.6 K/uL 0.1-1. 0 Not Available [facility] [address] [place], [place] [address]y [address], [place], [address], 10/16/2022 16:02:34 10/16/19 23 10/16/2022 CBC W/ AUTOD IFF, COMPL ETE BLOOD COUNT eosinophil, absolute 0.2 K/uL 0.1-1. 0 Not Available [facility] [address] [facility] [address], [place], [address], 10/16/2022 16:02:34 10/16/19 23 10/16/2022 CBC W/ AUTOD IFF, COMPL ETE BLOOD COUNT basophil, absolute 0.0 K/uL 0.0-0. 2 Not Available [facility] [address], [place], [address], 10/16/2022 16:02:34 10/16/19 23 10/16/2022 CMP, COMPR EHENS RENZO METAB OLIC PANEL glucose 96 mg/dL 70-100 Not Available [facility] [address], [place], [address], 10/16/2022 16:02:35 10/16/19 23 10/16/2022 CMP, COMPR EHENS RENZO METAB OLIC PANEL BUN 19 mg/dL 7-25 Not Available [facility] [address] [place] [address] [address] [place], [address], 10/16/2022 16:02:35 10/16/19 23 10/16/2022 CMP, COMPR EHENS RENZO METAB OLIC PANEL creatinine 1.1 mg/dL 0.6-1. 3 Not Available [facility] [address] [facility] [address] [place], [address], 10/16/2022 16:02:35 10/16/19 23 10/16/2022 CMP, COMPR EHENS RENZO METAB OLIC PANEL BUN/creatini ne ratio 17 calc 10-25 Not Available [facility] [address] [place] [address] [address] [place], [address], 10/16/2022 16:02:35 10/16/19 23 10/16/2022 CMP, COMPR EHENS RENZO METAB OLIC PANEL eGFR 84 mL/mi n/1.7 3m2 >60 THREE CONSE CUTIV E VALUE S <60 mL/mi n COULD BE INDIC ATIVE OF KIDNE Y DISEA SE. Not Available [facility] [address] [facility] [address] [place], [address], 10/16/2022 16:02:35 10/16/19 23 10/16/2022 CMP, COMPR EHENS RENZO METAB OLIC PANEL eGFR non- 69 mL/mi n/1.7 3m2 >60 THREE CONSE CUTIV E VALUE S < 60 mL/mi n COULD BE INDIC ATIVE OF KIDNE Y DISEA SE Not Available [facility] [address] [place], [address], 10/16/2022 16:02:35 10/16/19 23 10/16/2022 CMP, COMPR EHENS RENZO METAB OLIC PANEL sodium 142 mmol/ L 135-14 5 Not Available [facility] [address] [place], [address], 10/16/2022 16:02:35 10/16/19 23 10/16/2022 CMP, COMPR EHENS RENZO METAB OLIC PANEL potassium 4.5 mmol/ L 3.5-5. 5 Not Available [facility] [address] [facility] [address] [place], [address], 10/16/2022 16:02:35 10/16/19 23 10/16/2022 CMP, COMPR EHENS RENZO METAB OLIC PANEL chloride 105 mmol/ L 100-11 5 Not Available [facility] [address] [facility] [address] [place], [address], 10/16/2022 16:02:35 10/16/19 23 10/16/2022 CMP, COMPR EHENS RENZO METAB OLIC PANEL CO2 28 mmol/ L 21-33 Not Available [facility] [address] [facility] [address], [place], [address], 10/16/2022 16:02:35 10/16/19 23 10/16/2022 CMP, COMPR EHENS RENZO METAB OLIC PANEL anion gap 9.1 calc 3.0-11 .0 Not Available [facility] [address] [facility] [address], [place], [address], 10/16/2022 16:02:35 10/16/19 23 10/16/2022 CMP, COMPR EHENS RENZO METAB OLIC PANEL calcium 9.4 mg/dL 8.8-10 .6 Not Available [facility] [address] [facility] [address], [place], [address], 10/16/2022 16:02:35 10/16/19 23 10/16/2022 CMP, COMPR EHENS RENZO METAB OLIC PANEL total protein 6.8 g/dL 6.2-8. 6 Not Available [facility] [address], [place], [address], 10/16/2022 16:02:35 10/16/19 23 10/16/2022 CMP, COMPR EHENS RENZO METAB OLIC PANEL albumin 4.0 g/dL 3.5-5. 7 Not Available [facility] [address] [facility] [address], [place], [address], 10/16/2022 16:02:35 10/16/19 23 10/16/2022 CMP, COMPR EHENS RENZO METAB OLIC PANEL globuln 2.8 g/dL 1.3-4. 0 Not Available [facility] [address], [place], [address], 10/16/2022 16:02:35 10/16/19 23 10/16/2022 CMP, COMPR EHENS RENZO METAB OLIC PANEL A/G ratio 1.4 calc 1.0-2. 8 Not Available [facility] [address] [facility] [address], [place], [address], 10/16/2022 16:02:35 10/16/19 23 10/16/2022 CMP, COMPR EHENS RENZO METAB OLIC PANEL AST (SGOT) 16 U/L 13-39 Not Available [facility] [address] [facility] [address], [place], [address], 10/16/2022 16:02:35 10/16/19 23 10/16/2022 CMP, COMPR EHENS RENZO METAB OLIC PANEL ALT (SGPT) 15 U/L 7-52 Not Available [facility] [address] [facility] [address] [place], [address], 10/16/2022 16:02:35 10/16/19 23 10/16/2022 CMP, COMPR EHENS RENZO METAB OLIC PANEL alkaline phosphatase 48 U/L 20-128 Not Available [facility] [address] [facility] [address] [facility], [place], [address], 10/16/2022 16:02:35 10/16/19 23 10/16/2022 CMP, COMPR EHENS RENZO METAB OLIC PANEL total bilirubin 0.66 mg/dL 0.30-1 .00 Not Available [facility] [address] [facility] [address], [place], [address], 10/16/2022 16:02:35 10/16/19 23 10/16/2022 LIPID PANEL W/ CALCU LATED LDL cholesterol 186 mg/dL 20-180 high Expec kapil Range for Adult s: Total Monica stero l: Risk Class ifica tion: <200 mg/dl Terrie able 200-2 39 mg/dl Borde rline high > 240 mg/dl High Not Available [facility] [address] [facility] [address], [place], [address], 10/16/2022 16:02:36 10/16/19 23 10/16/2022 LIPID PANEL W/ CALCU LATED LDL triglyceride 254 mg/dL 30-150 high Not Available [facility] [address] [facility] [address] [place], [address], 10/16/2022 16:02:36 10/16/19 23 10/16/2022 LIPID PANEL W/ CALCU LATED LDL HDL cholesterol 36 mg/dL 23-92 Not Available [facility] [address] [facility] [address], [place], [address], 10/16/2022 16:02:36 10/16/19 23 10/16/2022 LIPID PANEL W/ CALCU LATED LDL chol/HDL risk ratio 5 calc <3.5 is OPTIM AL Not Available [facility] [address] [facility] [address], [place], [address], 10/16/2022 16:02:36 10/16/19 23 10/16/2022 LIPID PANEL W/ CALCU LATED LDL non-HDL cholesterol 150 mg/dL TERRIE ABLE IS <130 mg/dl Not Available [facility] [address] [place], [address], 10/16/2022 16:02:36 10/16/19 23 10/16/2022 LIPID PANEL W/ CALCU LATED LDL VLDL cholesterol 50.80 mg/dL Not Available [facility] [address] [facility] [address] [place], [address], 10/16/2022 16:02:36 10/16/19 23 10/16/2022 LIPID PANEL W/ CALCU LATED LDL LDL calculated 99 mg/dL 0-99 Not Available [facility] [address], [place], [address], 10/16/2022 16:02:36 10/16/1910/16/2022 VENIP UNCTU RE results Compl ete Not Available [facility] [address] [place], [place] [address]y [address], [place], [address], 10/16/2022 09:30:34 12/16/1912/15/2022 CBC W/ AUTOD IFF, COMPL ETE BLOOD COUNT WBC_I 8.10 3.60-1 0.00 Not Available [facility] [address] [place], [place] [address]y [address], [place], [address], 12/15/2022 13:46:18 12/16/19 23 12/15/2022 CBC W/ AUTOD IFF, COMPL ETE BLOOD COUNT nucleated RBC 0.10 % 0.00-2 .00 Not Available [facility] [address] [place], [place] [address] [address], [place], [address], 12/15/2022 13:46:18 12/16/19 23 12/15/2022 CBC W/ AUTOD IFF, COMPL ETE BLOOD COUNT RBC 4.44 M/uL 4.10-5 .80 Not Available [facility] [address] [place], [place] [address] [address], [place], [address], 12/15/2022 13:46:18 12/16/19 23 12/15/2022 CBC W/ AUTOD IFF, COMPL ETE BLOOD COUNT hemoglobin 13.6 g/dL 13.2-1 7.0 Not Available [facility] [address] [place], [place] [address]y [address], [place], [address], 12/15/2022 13:46:18 12/16/19 23 12/15/2022 CBC W/ AUTOD IFF, COMPL ETE BLOOD COUNT hematocrit 39.70 % 37.00- 51.00 Not Available [facility] [address], [place], [address], 12/15/2022 13:46:18 12/16/19 23 12/15/2022 CBC W/ AUTOD IFF, COMPL ETE BLOOD COUNT MCV 89.4 fL 80.0-9 9.0 Not Available [facility], [place], [address], 12/15/2022 13:46:18 12/16/19 23 12/15/2022 CBC W/ AUTOD IFF, COMPL ETE BLOOD COUNT MCH 30.6 pg 27.0-3 3.0 Not Available [facility], [place], [address], 12/15/2022 13:46:18 12/16/19 23 12/15/2022 CBC W/ AUTOD IFF, COMPL ETE BLOOD COUNT MCHC 34.2 g/dL 32.0-3 6.0 Not Available [facility] [address] [place] [address] [address], [place], [address], 12/15/2022 13:46:18 12/16/19 23 12/15/2022 CBC W/ AUTOD IFF, COMPL ETE BLOOD COUNT platelets 182 K/uL 140-44 0 Not Available [facility] [address] [place] [address] [address], [place], [address], 12/15/2022 13:46:18 12/16/19 23 12/15/2022 CBC W/ AUTOD IFF, COMPL ETE BLOOD COUNT RDW_I 13.7 % 11.0-1 5.0 Not Available [facility] [address], [place], [address], 12/15/2022 13:46:18 12/16/19 23 12/15/2022 CBC W/ AUTOD IFF, COMPL ETE BLOOD COUNT MPV 8.5 fL 7.4-10 .4 Not Available [facility] [address], [place], [address], 12/15/2022 13:46:18 12/16/19 23 12/15/2022 CBC W/ AUTOD IFF, COMPL ETE BLOOD COUNT neutrophil, percentage 59.7 % 40.0-7 5.0 Not Available [facility] [address], [place], [address], 12/15/2022 13:46:18 12/16/19 23 12/15/2022 CBC W/ AUTOD IFF, COMPL ETE BLOOD COUNT lymphocyte, percentage 29.0 % 15.0-4 5.0 Not Available [facility] [address] [place], [place] [address]y [address], [place], [address], 12/15/2022 13:46:18 12/16/19 23 12/15/2022 CBC W/ AUTOD IFF, COMPL ETE BLOOD COUNT monocyte, percentage 6.6 % Not Available [facility] [address] [place], [place] [address], [place], [address], 12/15/2022 13:46:18 12/16/19 23 12/15/2022 CBC W/ AUTOD IFF, COMPL ETE BLOOD COUNT eosinophil, percentage 4.1 % 1.0-6. 0 Not Available [facility] [address] [place], [place] [address]y [address], [place], [address], 12/15/2022 13:46:18 12/16/19 23 12/15/2022 CBC W/ AUTOD IFF, COMPL ETE BLOOD COUNT basophil, percentage 0.6 % 0.0-2. 0 Not Available [facility] [address] [place] [address] [address], [place], [address], 12/15/2022 13:46:18 12/16/19 23 12/15/2022 CBC W/ AUTOD IFF, COMPL ETE BLOOD COUNT neutrophil, absolute 4.8 K/uL 1.5-7. 5 Not Available [facility] [address] [place], [place] [address]y [address], [place], [address], 12/15/2022 13:46:18 12/16/19 23 12/15/2022 CBC W/ AUTOD IFF, COMPL ETE BLOOD COUNT lymphocyte, absolute 2.3 K/uL 0.8-4. 0 Not Available [facility] [address] [place], [place] [address]y [address], [place], [address], 12/15/2022 13:46:18 12/16/19 23 12/15/2022 CBC W/ AUTOD IFF, COMPL ETE BLOOD COUNT monocyte, absolute 0.5 K/uL 0.1-1. 0 Not Available [facility] [address] [place] [address] [address], [place], [address], 12/15/2022 13:46:18 12/16/19 23 12/15/2022 CBC W/ AUTOD IFF, COMPL ETE BLOOD COUNT eosinophil, absolute 0.3 K/uL 0.1-1. 0 Not Available [facility] [address] [place], [place] [address]y [address], [place], [address], 12/15/2022 13:46:18 12/16/19 23 12/15/2022 CBC W/ AUTOD IFF, COMPL ETE BLOOD COUNT basophil, absolute 0.0 K/uL 0.0-0. 2 Not Available [facility] [address] [place], [place] [address]y [address], [place], [address], 12/15/2022 13:46:18 12/16/19 23 12/15/2022 IRON, TIBC AND JULIETA TIN PANEL serum iron 58 ug/dL 45-210 Not Available [facility] [address] [place] [address] [address], [place], [address], 12/15/2022 13:46:20 12/16/19 23 12/15/2022 IRON, TIBC AND JULIETA TIN PANEL ferritin 153.7 NG/mL 16.0-2 43.0 Not Available [facility] [address] [place] [address] [address], [place], [address], 12/15/2022 13:46:20 12/16/19 23 12/15/2022 IRON, TIBC AND JULIETA TIN PANEL iron binding capacity 278 ug/dL 250-45 0 Not Available [facility] [address] [facility] [address], [place], [address], 12/15/2022 13:46:20 12/16/19 23 12/15/2022 IRON, TIBC AND JULIETA TIN PANEL unsaturated iron binding capacity 220 ug/dL Not Available [facility] [address] [place] [address] [address] [place], [address], 12/15/2022 13:46:20 12/16/19 23 12/15/2022 IRON, TIBC AND JULIETA TIN PANEL % iron saturation 20.9 % 13.0-4 5.0 Not Available [facility] [address] [place] [address] [address] [place], [address], 12/15/2022 13:46:20 12/16/19 23 12/15/2022 VITAM IN B12 AND FOLAT E vitamin B-12 323 pg/mL 232-12 45 Not Available [facility] [address], [place], [address], 12/17/2022 16:47:24 12/16/19 23 12/15/2022 VITAM IN B12 AND FOLAT E folate 16.0 NG/mL 3.1-17 .5 Range for Folat e > 4.6 is consi dered chepe l. 3.1-4 .6 is consi dered borde rline < 3.1 is consi dered a low serum level . Not Available [facility] [address], [place], [address], 12/17/2022 16:47:24 12/16/19 23 12/15/2022 VENIP UNCTU RE results Compl ete Not Available [facility] [address], [place], [address], 12/15/2022 06:40:47 03/27/20 24 03/28/2024 LIPID PANEL , STAND ADINA cholesterol, total 203 mg/dL <200 high Not Available [facility] [place] [facility] [address], [place], [address], 03/28/2024 06:37:44 03/27/20 24 03/28/2024 LIPID PANEL , STAND ADINA HDL cholesterol 33 mg/dL > or = 40 low Not Available [facility] [place] [facility] [address], [place], [address], 03/28/2024 06:37:44 03/27/20 24 03/28/2024 LIPID PANEL , STAND ADINA triglyceride s 402 mg/dL <150 high If a non-f astin g speci men was colle cted, consi yamileth repea t trigl yceri de testi ng on a fasti ng speci men if clini melina indic ated. Amrit lu et al. J. of Clin. Lipid ol. 2015; 9:129 -169. Not Available [facility] [place] [facility] [address], [place], [address], 03/28/2024 06:37:44 03/27/20 24 03/28/2024 LIPID PANEL , STAND ADINA LDL-choleste rol mg/dL _(krupa c) LDL monica stero l not calcu lated . Trigl yceri de level s great er than 400 mg/dL inval idate calcu lated LDL resul ts. Refer ence range : <100 Terrie able range <100 mg/dL for prima ry preve ntion ; <70 mg/dL for patie nts with CHD or diabe tic patie nts with > or = 2 CHD risk facto rs. LDL-C is now calcu lated using the Petra n-Hop kins calcu precious n, which is a valid ated novel metho d provi ding warren r accur acy than the Fried mario equat ion in the estim ation of LDL-C . Petra n SS et al. EUSEBIO. 2013; 310(1 9): 2061- 2068 (http ://ed ucati on.Qu estDi YEVVO. com/f aq/FA Q164) Not Available [facility] [place] [facility] [address], [place], [address], 03/28/2024 06:37:44 03/27/20 24 03/28/2024 LIPID PANEL , STAND ADINA chol/HDLC ratio 6.2 (calc ) <5.0 high Not Available [facility] [place] [facility] [address], [place], [address], 03/28/2024 06:37:44 03/27/20 24 03/28/2024 LIPID PANEL , STAND ADINA non HDL cholesterol 170 mg/dL _(krupa c) <130 high For patie nts with diabe gayathri plus 1 major ASCVD risk facto r, treat ing to a non-H DL-C goal of <100 mg/dL (LDL- C of <70 mg/dL ) is consi dered a thera peuti c optio n. Not Available [facility] [place] [facility] [address], [place], [address], 03/28/2024 06:37:44 03/27/2003/28/2024 COMPR EHENS RENZO METAB OLIC PANEL glucose 103 mg/dL 65-99 high Fasti ng refer ence inter [facility] For someo ne witho ut known diabe gayathri, a gluco se value betwe en 100 and 125 mg/dL is consi stent with predi abete s and shoul d be confi rmed with a follo w-up test. Not Available [facility] [place] [facility] [address], [place], [address], 03/28/2024 06:37:45 03/27/20 24 03/28/2024 COMPR EHENS RENZO METAB OLIC PANEL urea nitrogen (BUN) 22 mg/dL 7-25 normal Not Available [facility] [address], [place], [address], 03/28/2024 06:37:45 03/27/20 24 03/28/2024 COMPR EHENS RENZO METAB OLIC PANEL creatinine 1.29 mg/dL 0.70-1 .22 high Not Available [facility] [address], [place], [address], 03/28/2024 06:37:45 03/27/20 24 03/28/2024 COMPR EHENS RENZO METAB OLIC PANEL eGFR 55 mL/mi n/1.7 3m2 > or = 60 low Not Available [facility] [address], [place], [address], 03/28/2024 06:37:45 03/27/20 24 03/28/2024 COMPR EHENS RENZO METAB OLIC PANEL BUN/creatini ne ratio 17 (calc ) 6-22 normal Not Available [facility] [address], [place], [address], 03/28/2024 06:37:45 03/27/20 24 03/28/2024 COMPR EHENS RENZO METAB OLIC PANEL sodium 138 mmol/ L 135-14 6 normal Not Available [facility] [address], [place], [address], 03/28/2024 06:37:45 03/27/20 24 03/28/2024 COMPR EHENS RENZO METAB OLIC PANEL potassium 4.8 mmol/ L 3.5-5. 3 normal Not Available [facility] [address], [place], [address], 03/28/2024 06:37:45 03/27/20 24 03/28/2024 COMPR EHENS RENZO METAB OLIC PANEL chloride 103 mmol/ L 98-110 normal Not Available [facility] [address], [place], [address], 03/28/2024 06:37:45 03/27/20 24 03/28/2024 COMPR EHENS RENZO METAB OLIC PANEL carbon dioxide 30 mmol/ L 20-32 normal Not Available [facility] [address], [place], [address], 03/28/2024 06:37:45 03/27/20 24 03/28/2024 COMPR EHENS RENZO METAB OLIC PANEL calcium 9.7 mg/dL 8.6-10 .3 normal Not Available [facility] [address], [place], [address], 03/28/2024 06:37:45 03/27/20 24 03/28/2024 COMPR EHENS RENZO METAB OLIC PANEL protein, total 7.0 g/dL 6.1-8. 1 normal Not Available [facility] [address], [place], [address], 03/28/2024 06:37:45 03/27/20 24 03/28/2024 COMPR EHENS RENZO METAB OLIC PANEL albumin 4.3 g/dL 3.6-5. 1 normal Not Available [facility] [address], [place], [address], 03/28/2024 06:37:45 03/27/20 24 03/28/2024 COMPR EHENS RENZO METAB OLIC PANEL globulin 2.7 g/dL_ (calc ) 1.9-3. 7 normal Not Available [facility] [address], [place], [address], 03/28/2024 06:37:45 03/27/20 24 03/28/2024 COMPR EHENS RENZO METAB OLIC PANEL albumin/glob ulin ratio 1.6 (calc ) 1.0-2. 5 normal Not Available [facility] [address], [place], [address], 03/28/2024 06:37:45 03/27/20 24 03/28/2024 COMPR EHENS RENZO METAB OLIC PANEL bilirubin, total 0.6 mg/dL 0.2-1. 2 normal Not Available [facility] [address], [place], [address], 03/28/2024 06:37:45 03/27/20 24 03/28/2024 COMPR EHENS RENZO METAB OLIC PANEL alkaline phosphatase 45 U/L 35-144 normal Not Available [facility] [employer] [facility] [address], [place], [address], 03/28/2024 06:37:45 03/27/20 24 03/28/2024 COMPR EHENS RENZO METAB OLIC PANEL AST 17 U/L 10-35 normal Not Available [facility] [address], [place], [address], 03/28/2024 06:37:45 03/27/20 24 03/28/2024 COMPR EHENS RENZO METAB OLIC PANEL ALT 17 U/L 9-46 normal Not Available [facility] [address], [place], [address], 03/28/2024 06:37:45 03/27/20 24 03/28/2024 HEMOG LOBIN A1C hemoglobin A1C 5.7 %_of_ total _HGB <5.7 high For someo ne witho ut known diabe gayathri, a hemog lobin A1c value betwe en 5.7% and 6.4% is consi stent with predi abete s and shoul d be confi rmed with a follo w-up test. For someo ne with known diabe gayathri, a value <7% indic ates that their diabe gayathri is well contr olled . A1c targe ts shoul d be indiv idual ized based on durat ion of diabe gayathri, age, comor bid condi tions , and other consi derat ions. This assay resul t is consi stent with an incre ased risk of diabe gayathri. Curre ntly, no conse nsus exist s regar ding use of hemog lobin A1c for diagn osis of diabe gayathri for child jorgito. This test was perfo rmed on the [employer] axel c503 platf orm. Effec tive 06/07, a philipp nava in test platf orms from the [facility] to the Alethea axel c503 may have shift ed HbA1c resul ts peng red to histo rical resul ts. Based on labor atory valid ation testi ng condu cted at [facility] , the [facility] platf orm relat renzo to the [employer] platf orm had an avera ge incre ase in HbA1c value of < or = 0.3%. This diffe rence is withi n accep kapil varia bilit y estab lishe d by the [facility] hemog lobin Stand ardiz ation Progr am. Note that not all indiv idual s will have had a shift in their resul ts and direc t peng rison s betwe en histo rical and curre nt resul ts for testi ng condu cted on diffe rent platf orms is not recom pao d. Not Available [facility] [place] [facility] [address], [place], [address], 03/28/2024 06:37:46 03/27/2003/28/2024 TSH TSH 2.76 mIU/L 0.40-4 .50 normal Not Available [facility] [place] [facility] [address], [place], [address], 03/28/2024 06:37:46 03/27/20 24 03/28/2024 CBC (INCL UDES DIFF/ PLT) white blood cell count 8.0 thous and/u L 3.8-10 .8 normal Not Available [facility] [address], [place], [address], 03/28/2024 06:37:47 03/27/20 24 03/28/2024 CBC (INCL UDES DIFF/ PLT) red blood cell count 4.58 hank on/uL 4.20-5 .80 normal Not Available [facility] [address], [place], [address], 03/28/2024 06:37:47 03/27/2003/28/2024 CBC (INCL UDES DIFF/ PLT) hemoglobin 14.1 g/dL 13.2-1 7.1 normal Not Available [facility] [address], [place], [address], 03/28/2024 06:37:47 03/27/20 24 03/28/2024 CBC (INCL UDES DIFF/ PLT) hematocrit 42.9 % 38.5-5 0.0 normal Not Available [facility] [address], [place], [address], 03/28/2024 06:37:47 03/27/20 24 03/28/2024 CBC (INCL UDES DIFF/ PLT) MCV 93.7 fL 80.0-1 00.0 normal Not Available [facility] [address], [place], [address], 03/28/2024 06:37:47 03/27/20 24 03/28/2024 CBC (INCL UDES DIFF/ PLT) MCH 30.8 pg 27.0-3 3.0 normal Not Available [facility] [address], [place], [address], 03/28/2024 06:37:47 03/27/20 24 03/28/2024 CBC (INCL UDES DIFF/ PLT) MCHC 32.9 g/dL 32.0-3 6.0 normal Not Available [facility] [address], [place], [address], 03/28/2024 06:37:47 03/27/20 24 03/28/2024 CBC (INCL UDES DIFF/ PLT) RDW 12.3 % 11.0-1 5.0 normal Not Available [facility] [address], [place], [address], 03/28/2024 06:37:47 03/27/20 24 03/28/2024 CBC (INCL UDES DIFF/ PLT) platelet count 207 thous and/u L 140-40 0 normal Not Available [facility] [address], [place], [address], 03/28/2024 06:37:47 03/27/20 24 03/28/2024 CBC (INCL UDES DIFF/ PLT) MPV 10.6 fL 7.5-12 .5 normal Not Available [facility] [address], [place], [address], 03/28/2024 06:37:47 03/27/20 24 03/28/2024 CBC (INCL UDES DIFF/ PLT) absolute neutrophils 4560 cells /uL 1500-7 800 normal Not Available [facility] [address], [place], [address], 03/28/2024 06:37:47 03/27/20 24 03/28/2024 CBC (INCL UDES DIFF/ PLT) absolute lymphocytes 2512 cells /uL 850-39 00 normal Not Available [facility] [address], [place], [address], 03/28/2024 06:37:47 03/27/20 24 03/28/2024 CBC (INCL UDES DIFF/ PLT) absolute monocytes 528 cells /uL 200-95 0 normal Not Available [facility] [place] [facility] [address], [place], [address], 03/28/2024 06:37:47 03/27/20 24 03/28/2024 CBC (INCL UDES DIFF/ PLT) absolute eosinophils 352 cells /uL 15-500 normal Not Available [facility] [place] [facility] [address], [place], [address], 03/28/2024 06:37:47 03/27/20 24 03/28/2024 CBC (INCL UDES DIFF/ PLT) absolute basophils 48 cells /uL 0-200 normal Not Available [facility] [place] [facility] [address], [place], [address], 03/28/2024 06:37:47 03/27/20 24 03/28/2024 CBC (INCL UDES DIFF/ PLT) neutrophils 57 % normal Not Available [facility] [place] [facility] [address], [place], [address], 03/28/2024 06:37:47 03/27/20 24 03/28/2024 CBC (INCL UDES DIFF/ PLT) lymphocytes 31.4 % normal Not Available [facility] [place] [facility] [address], [place], [address], 03/28/2024 06:37:47 03/27/20 24 03/28/2024 CBC (INCL UDES DIFF/ PLT) monocytes 6.6 % normal Not Available [facility] [place] [facility] [address], [place], [address], 03/28/2024 06:37:47 03/27/20 24 03/28/2024 CBC (INCL UDES DIFF/ PLT) eosinophils 4.4 % normal Not Available [facility] [place] [facility] [address], [place], [address], 03/28/2024 06:37:47 03/27/20 24 03/28/2024 CBC (INCL UDES DIFF/ PLT) basophils 0.6 % normal Not Available [facility] [address], [place], [address], 03/28/2024 06:37:47 03/27/20 24 03/28/2024 URINA LYSIS , COMPL ETE W/REF JAH TO CULTU RE color YELLOW yellow normal Not Available [facility] [address], [place], [address], 03/28/2024 06:37:47 03/27/20 24 03/28/2024 URINA LYSIS , COMPL ETE W/REF JAH TO CULTU RE appearance CLEAR clear normal Not Available [facility] [place] [facility] [address], [place], [address], 03/28/2024 06:37:47 03/27/20 24 03/28/2024 URINA LYSIS , COMPL ETE W/REF JAH TO CULTU RE specific gravity 1.020 1.001- 1.035 normal Not Available [facility] [address], [place], [address], 03/28/2024 06:37:47 03/27/20 24 03/28/2024 URINA LYSIS , COMPL ETE W/REF JAH TO CULTU RE pH 5.5 5.0-8. 0 normal Not Available [facility] [address], [place], [address], 03/28/2024 06:37:47 03/27/20 24 03/28/2024 URINA LYSIS , COMPL ETE W/REF JAH TO CULTU RE glucose NEGATI VE negati ve normal Not Available [facility] [address], [place], [address], 03/28/2024 06:37:47 03/27/20 24 03/28/2024 URINA LYSIS , COMPL ETE W/REF JAH TO CULTU RE bilirubin NEGATI VE negati ve normal Not Available [facility] [place] [facility] [address], [place], [address], 03/28/2024 06:37:47 03/27/20 24 03/28/2024 URINA LYSIS , COMPL ETE W/REF JAH TO CULTU RE ketones NEGATI VE negati ve normal Not Available [facility] [place] [facility] [address], [place], [address], 03/28/2024 06:37:47 03/27/20 24 03/28/2024 URINA LYSIS , COMPL ETE W/REF JAH TO CULTU RE occult blood NEGATI VE negati ve normal Not Available [facility] [place] [facility] [address], [place], [address], 03/28/2024 06:37:47 03/27/20 24 03/28/2024 URINA LYSIS , COMPL ETE W/REF JAH TO CULTU RE protein NEGATI VE negati ve normal Not Available [facility] [place] [facility] [address], [place], [address], 03/28/2024 06:37:47 03/27/20 24 03/28/2024 URINA LYSIS , COMPL ETE W/REF JAH TO CULTU RE nitrite NEGATI VE negati ve normal Not Available [facility] [place] [facility] [address], [place], [address], 03/28/2024 06:37:47 03/27/20 24 03/28/2024 URINA LYSIS , COMPL ETE W/REF JAH TO CULTU RE leukocyte esterase NEGATI VE negati ve normal Not Available [facility] [place] [facility] [address], [place], [address], 03/28/2024 06:37:47 03/27/20 24 03/28/2024 URINA LYSIS , COMPL ETE W/REF JAH TO CULTU RE WBC NONE SEEN /hpf < or = 5 normal Not Available [facility] [place] [facility] [address], [place], [address], 03/28/2024 06:37:47 03/27/20 24 03/28/2024 URINA LYSIS , COMPL ETE W/REF JAH TO CULTU RE RBC NONE SEEN /hpf < or = 2 normal Not Available [facility] [place] [facility] [address], [place], [address], 03/28/2024 06:37:47 03/27/20 24 03/28/2024 URINA LYSIS , COMPL ETE W/REF JAH TO CULTU RE squamous epithelial cells NONE SEEN /hpf < or = 5 normal Not Available [facility] [place] [facility] [address], [place], [address], 03/28/2024 06:37:47 03/27/20 24 03/28/2024 URINA LYSIS , COMPL ETE W/REF JAH TO CULTU RE bacteria NONE SEEN /hpf none seen normal Not Available [facility] [place] [facility] [address], [place], [address], 03/28/2024 06:37:47 03/27/20 24 03/28/2024 URINA LYSIS , COMPL ETE W/REF JAH TO CULTU RE hyaline cast NONE SEEN /lpf none seen normal Not Available [facility] [place] [facility] [address], [place], [address], 03/28/2024 06:37:47 03/27/20 24 03/28/2024 URINA LYSIS , COMPL ETE W/REF JAH TO CULTU RE note This urine was bernadette zed for the prese nce of WBC, RBC, bacte emeka, casts , and other forme d eleme nts. Only those eleme nts seen were repor kapil. Not Available [facility] [place] [facility] [address], [place], [address], 03/28/2024 06:37:47 03/27/20 24 03/28/2024 REFLE XIVE URINE CULTU RE reflexive urine culture NO CULTU RE INDIC ATED Not Available [facility] [place] [facility] [address], [place], [address], 03/28/2024 06:37:48 Result Notes None recorded. Problems Name Problem SNOMED Code Status Onset Date Resolution Date Notes Provider Name and Address Organization Details Recorded Time Automatic implantable cardiac defibrillat or in situ 979463425 Active 2021 MARGRET ARGUETA, DO [address], [place], [address], [facility] [employer] [facility], [facility] 2 15:00:04 Chronic congestive heart failure 31639874 Active 2021 MARGRET ARGUETA DO [address], [place], [address], [facility] [employer] [facility], [facility] 2 22:40:23 Impaired fasting glycemia 335081564 Active 2021 MARGRET ARGUETA DO [address], [place], [address], [facility] [employer] [facility], [facility] 2 22:40:40 Adult health examination Active 2021 MARGRET ARGUETA DO [address], [place], [address], [facility] [employer] [facility], [facility] 2 22:40:49 Essential hypertensio n 65082766 Active 2022 MARGRET ARGUETA DO [address], [place], [address], [facility] [employer] [facility], [facility] 3 09:38:33 Aortic valve regurgitati on 62792661 Active 2022 MARGRET ARGUETA DO [address], [place], [address], [facility] [employer] [facility], [facility] 3 09:40:58 Nonischemic congestive cardiomyopa thy 908951901535 Active 2022 MARGRET ARGUETA, DO [address], [place], [address], [facility], [facility] 3 09:41:45 Left bundle branch block 69280017 Active 2022 MARGRET ARGUETA, DO [address], [place], [address], [facility], [facility] 3 09:41:55 Coronary arterioscle rosis 02133299 Active 2022 MARGRET ARGUETA, DO [address], [place], [address], [facility], [facility] 3 09:42:04 Dilatation of aorta 81022311 Active 2022 MARGRET ARGUETA, DO [address], [place], [address], [facility], [facility] 3 09:42:24 Gastroesoph ageal reflux disease 982385184 Active 2019 MARGRET ARGUETA, DO [address], [place], [address], [facility], [facility] 0 13:37:32 Hyperlipide jose 33875079 Active 2019 MARGRET ARGUETA, DO [address], [place], [address], [facility], [facility] 0 13:37:36 Arthritis 3891024 Active 2019 MARGRET ARGUETA, DO [address], [place], [address], [facility], [facility] 0 13:41:41 History of sick sinus syndrome 2214402574971 03 Active 2019 MARGRET ARGUETA, DO [address], [place], [address], [facility], [facility] 0 13:59:28 Cota's esophagus 484250679 Active 2019 MARGRET ARUGETA, DO [address], [place], [address], [facility], [facility] 0 14:02:13 History of malignant neoplasm of prostate 862740497 Active 2019 MARGRET ARGUETA, DO [address], [place], [address], [facility], [facility] 0 14:02:26 Problem Notes None recorded. Procedures Surgical History Date Name Laterality Status Provider Name and Address Organization Details Recorded Time 03/24/20 Quality Advanced Care Planning completed Kitty hugo [facility], [facility] 03/22/2024 16:57:22 03/24/20 24 Quality Incontinence Screening completed Kitty hugo [facility], [facility] 03/22/2024 16:57:22 07/06/20 23 Quality Functional Assessment completed Gisele hugo [facility], [facility] 07/06/2023 07:03:10 07/06/20 23 Quality Medication Reviewed and Updated completed Gisele hugo [facility], [facility] 07/06/2023 07:03:10 07/06/20 23 Medicare AWV Questionnaire completed Gisele hugo [facility], [facility] 07/06/2023 09:18:15 07/06/20 23 Quality BMI with follow up completed Gisele hugo [facility], [facility] 07/06/2023 07:03:10 07/06/20 23 Quality Advanced Care Planning completed Gisele hugo [facility], [facility] 07/06/2023 07:03:10 07/06/20 23 Quality Incontinence Screening completed Gisele hugo [facility], [facility] 07/06/2023 07:03:10 07/06/20 23 Medicare AWV-Screening Schedule completed Gisele hugo [facility], [facility] 07/06/2023 07:03:10 07/06/20 23 Quality Fall Risk Assessment completed Gisele hugo [facility], [facility] 07/06/2023 07:03:10 12/23/19 23 Quality Functional Assessment completed Jose Francisco hugo [facility], [facility] 12/22/2022 09:13:59 12/23/19 23 Quality Medication Reviewed and Updated completed Jose Francisco hugo [facility], [facility] 12/22/2022 09:13:59 12/23/19 23 Medicare AWV Questionnaire completed JOY Torres [address] [facility], [place], [address], [facility], [facility] 12/22/2022 09:46:26 12/23/19 23 Quality BMI with follow up completed Jose Francisco hugo [facility], [facility] 12/22/2022 09:13:59 12/23/19 23 Quality Advanced Care Planning completed Jose Francisco hugo [facility], [facility] 12/22/2022 09:13:59 12/23/19 23 Quality Incontinence Screening completed Jose Francisco hugo [facility], [facility] 12/22/2022 09:13:59 12/23/19 23 Quality Fall Risk Assessment completed Jose Francisco hugo [facility], [facility] 12/22/2022 09:13:59 05/23/20 22 colonoscopy completed Jose Francisco hugo [facility], [facility] 12/22/2022 09:20:23 01/27/20 22 Quality Functional Assessment completed Allison hugo [facility], [facility] 01/22/2022 12:49:50 01/27/20 22 Quality Medication Reviewed and Updated completed Allison hugo [facility], [facility] 01/22/2022 12:49:49 01/27/20 22 Quality BMI with follow up completed Allison hugo [facility], [facility] 01/22/2022 12:49:50 01/27/20 22 Quality Advanced Care Planning completed Allison hugo [facility], [facility] 01/22/2022 12:49:50 01/27/20 22 Quality Incontinence Screening completed Allison hugo [facility], [facility] 01/22/2022 12:49:50 01/27/20 22 Medicare AWV-Screening Schedule completed Allisonann Talamantes [facility], [facility] 01/22/2022 12:49:50 01/27/20 22 Quality Fall Risk Assessment completed Allisonann Talamantes [facility], [facility] 01/22/2022 12:49:50 06/23/20 19 Biopsy completed Kaylie Dan [facility], [facility] 01/01/2020 13:26:43 01/22/20 18 Colonoscopy completed Kaylie Dan [facility], [facility] 01/01/2020 13:34:13 01/22/20 15 Pacemaker implantation completed MARGRET ARGUETA DO [address], [place], [address], [facility], [facility] 07/06/2023 09:33:24 12/22/19 06 Prostatectomy completed MARGRET ARGUETA DO [address], [place], [address], [facility] 01/01/2020 13:44:03 08/23/18 75 Vasectomy completed Kaylie Dan [facility] 01/01/2020 13:26:43 Imaging Results None recorded. Procedure Notes None recorded. Medical Equipment None Reported. Allergies Allergen ID Allergen Name Allergen Category Reaction Reaction Severity Criticality Documentation Date Start Date Code Code System Note Provider Name and Address Organization Details Recorded Time 8105216 adhesive tape environme nt,medica tion rash Not available Not available 01/26/2022 Janelle Goodman [facility] 2 14:54:41 342431 Penicilli n Not available itching rash Not available moderate Not available 01/01/2020 28512 RxNorm Kaylie Dan [facility] 0 13:26:05 Medications Name Sig Start Date Stop Date Status Note LastModified by Organization Details LastModified Time amoxicillin 500 mg capsule TAKE 2 CAPS STAT, THEN 1 CAPSULE BY MOUTH 3 TIMES A DAY 01/11 completed Not Available Not Available Not Available atorvastati n 40 mg tablet TAKE 1 TABLET BY MOUTH EVERY DAY active Not Available Not Available No t Available carvedilol 25 mg tablet TAKE 1 TABLET BY MOUTH TWICE A DAY WITH MEALS active Not Available Not Available No t Available clindamycin HCl 300 mg capsule PLEASE SEE ATTACHED FOR DETAILED DIRECTION S 03/24 completed Not Available Not Available Not Available lisinopril 20 mg tablet TAKE 1 TABLET BY MOUTH EVERY DAY active Not Available Not Available No t Available clindamycin HCl 150 mg capsule Take 1 capsule every 6 hours by oral route. 02/20 completed Not Available Not Available Not Available Zyrtec 10 mg tablet Take 1 tablet twice a day by oral route. active Not Available Not Available No t Available omeprazole 40 mg capsule,del ayed release Take 1 capsule every day by oral route. 2023 active Not Available Not Available Not Avai lable triamcinolo ne acetonide 0.1 % topical cream active Not Available Not Available Not Available lisinopril 10 mg tablet Take 1 tablet twice a day by oral route. 07/06 completed Not Available Not Available Not Available lisinopril 5 mg tablet TAKE 1 TABLET BY MOUTH TWO TIMES DAILY. 03/24 completed Not Available Not Available Not Available Aspir-81 mg tablet,natalie yed release Take 1 tablet every day by oral route. 01/26 completed Not Available Not Available Not Available cefdinir 300 mg capsule TAKE 1 CAPSULE BY MOUTH EVERY 12 HOURS FOR 7 DAYS active Not Available Not Available No t Available fluticasone propionate 50 mcg/actuati on nasal spray,suspe nsion SPRAY 1 SPRAY BY INTRANASA L ROUTE EVERY DAY active Not Available Not Available No t Available multivitami n daily active Not Available Not Available Not Available Sutab 1.479-0.188 -0.225 gram tablet TAKE DIRECTED 03/24 completed Not Available Not Available Not Available Vitals Date Recorded Body height Body mass index (BMI) Body weight Provider Name and Address Organization Details Last Updated DateTime 10/07/2022 186.69 cm 28 kg/m2 26882.36 g Gisele Alex [place] [facility], [facility] 10/07/2022 09:17:54 Date Recorded Body height Body mass index (BMI) Body weight Oxygen saturation Oxygen saturation in Arterial blood by Pulse oximetry Heart rate Respiratory rate Body temperature Systolic blood pressure Diastolic blood pressure Provider Name and Address Organization Details Last Updated DateTime 3 186.69 cm 29.8 kg/m2 761718. 29 g 97 % 97 % 66 /min 18 /min 98.6 [degF] 110 mm[Hg] 60 mm[Hg] Jose Francisco Fernandez [facility], [facility] 3 09:17:51 Date Recorded Body height Body mass index (BMI) Body weight Heart rate Oxygen saturation Oxygen saturation in Arterial blood by Pulse oximetry Body temperature Systolic blood pressure Diastolic blood pressure Provider Name and Address Organization Details Last Updated DateTime 3 186.69 cm 27.9 kg/m2 60701.9 2 g 69 /min 95 % 95 % 97.9 [degF] 104 mm[Hg] 58 mm[Hg] Gisele Alex [facility], [facility] 3 09:15:47 Date Recorded Body height Body mass index (BMI) Body weight Heart rate Oxygen saturation Oxygen saturation in Arterial blood by Pulse oximetry Respiratory rate Body temperature Systolic blood pressure Diastolic blood pressure Provider Name and Address Organization Details Last Updated DateTime 4 186.69 cm 27.9 kg/m2 83055.7 7 g 62 /min 94 % 94 % 16 /min 98.2 [degF] 124 mm[Hg] 58 mm[Hg] Kitty travis [facility], [facility] 4 11:28:23 Date Recorded Body height Body mass index (BMI) Body weight Provider Name and Address Organization Details Last Updated DateTime 03/31/2024 186.69 cm 27.6 kg/m2 02784.58 g Naomi Capone [facility], [facility] 03/31/2024 11:43:14 Social History Question Answer Notes LastModified by Organization Details LastModified Time Tobacco Smoking Status Former Smoker Kaylie hugo [facility], [facility] 01/01/2020 13:26:36 Do You Have An Advance Directive? Yes Information not available 01/01/2020 Is Your Home Air Conditioned? Yes Information not available 03/24/2024 What Is Your Level Of Alcohol Consumption? Occasional Information not available 01/01/2020 Do You Wear A Helmet When Biking? No [email or web address] Information not available 01/26/2022 Is Blood Transfusion Acceptable In An Emergency? Yes [email or web address] Information not available 01/26/2022 What Is Your Level Of Caffeine Consumption? Moderate Information not available 01/01/2020 How Much Tobacco Do You Chew? None Information not available 01/01/2020 In The 14 Days Before Symptom Onset, Have You Had Close Contact With A Laboratory-confi rmed COVID-19 While That Case Was Ill? No [email or web address] Information not available 01/26/2022 In The 14 Days Before Symptom Onset, Have You Had Close Contact With A Person Who Is Under Investigation For COVID-19 While That Person Was Ill? No [email or web address] Information not available 01/26/2022 Have You Been To An Area Known To Be High Risk For COVID-19? No [email or web address] Information not available 01/26/2022 Are You Currently Employed? No Information not available 01/26/2022 What Type Of Diet Are You Following? REGULAR Information not available 01/01/2020 Which Illicit Or Recreational Drugs Have You Used? None Information not available 01/01/2020 Do You Or Have You Ever Used E-cigarettes Or Vape? Never Used Electronic Cigarettes Information not available 01/01/2020 Education 12 [email or web address] Information not available 01/26/2022 What Is The Highest Grade Or Level Of School You Have Completed Or The Highest Degree You Have Received? [id number] Information not available 03/24/2024 Have There Been Any Changes To Your Family Or Social Situation? No [email or web address] Information not available 01/26/2022 When Did You Quit Smoking? 16+yearssincelanne-marie bernabe Quit 56 Years Ago Information not available 03/24/2024 Are There Any Guns Present In Your Home? No Information not available 02/20/2022 Where Do You Live? SingleLevelHouse [email or web address] Information not available 12/22/2022 Alcohol Use No Information not available 01/01/2020 Do You Smoke? No Information not available 02/20/2022 Marital Status [email or web address] Informatio n not available 01/26/2022 Do You Have A Medical Power Of Sprinkler Repair Technician? Yes [email or web address] Information not available 01/26/2022 What Was The Date Of Your Most Recent Tobacco Screening? 03/24/2024 Information not available 03/24/2024 What Is Your Relationship Status? [email or web address] Information not available 01/26/2022 Do You Use Your Seat Belt Or Car Seat Routinely? Yes [email or web address] Information not available 01/26/2022 Are You Sexually Active? No Information not available 01/26/2022 Do You Have Smoke And Carbon Monoxide Detectors In Your Home? Yes [email or web address] Information not available 01/26/2022 Are You Passively Exposed To Smoke? No [email or web address] Information not available 01/26/2022 Do You Or Have You Ever Used Smokeless Tobacco? Never Used Smokeless Tobacco Information not available 01/01/2020 Are There Any Smokers In Your House? No Information not available 03/24/2024 Do You Use Any Illicit Or Recreational Drugs? No Information not available 01/26/2022 Do You Use Sunscreen Routinely? No [email or web address] Information not available 01/26/2022 Has Tobacco Cessation Counseling Been Provided? Yes [email or web address] Information not available 12/22/2022 On What Date Was Tobacco Cessation Counseling Provided? 12/22/2022 [email or web address] Information not available 12/22/2022 Do You Or Have You Ever Used Any Other Forms Of Tobacco Or Nicotine? No [email or web address] Information not available 01/26/2022 Sex: Male Functional Status Question Answer Note LastModified by Organization D etails LastModified Time What is your exercise level? Moderate Information not available 01/01/2020 Mental Status None recorded. Family History Relationship Description Onset Age of this Age Resolved Age Notes Father Heart disease Medical History Condition Response Cancer (location) Y Other N Gout N Thyroid Disease N Kidney Stones N Measles/Mumps N Emphysema/COPD N Sexually Transmitted Disease N Depression N Prostate Problems Y Vascular Disease N Rash/Skin Condition N Amputation (location) N Parkinson's N Paralysis N Headaches/Migraines N Cardiac Pacemaker/defibrillator Y Nerve Damage / Neuropathy N Arthritis N Sleep disorder/Insomnia N Infertility N Heart disease / Heart Attack N Crohn's Disease N HIV/AIDS N Stroke/TIA N High Cholesterol N Colon Problems N Serious Injuries N Kidney Disease N Memory Loss/Alzheimer's N High blood pressure N Gallbladder disease N Congestive heart failure N Falls N Hormone Replacement N Blood Thinner Treatment N Alcohol Overuse N Nervous Breakdown N Cota's Esophagus Y Anemia N Urinary Problems N Colon Polyps Y Gastritis N Hospitalizations (other than operations) N Diabetes N Back pain N Rheumatic Fever N Bleeding Disorder N Cardiac Arrhythmias /irregular heart rat e N Osteopenia/Osteoporosis N Anxiety/Stress N Vision Problems N Asthma N Erectile / Sexual Dysfunction N Ostomies (location) N Seizures N Sleep Apnea N Jaundice N Hepatitis N Past Reacton to Contrast Media N Cirrhosis N GERD/Ulcer Y Chicken Pox N Allergies (other than meds) N Immunizations Vaccine Type Date Status Provider Name and Address Organization Details Recorded Time Influenza, high-dose, trivalent, PF 06/06/2019 completed Kaylie hugo [facility], [facility] 01/01/2020 13:25:33 Influenza, high-dose, trivalent, PF 07/25/2018 completed Kaylie hugo [facility], [facility] 01/01/2020 13:25:33 Influenza, adjuvanted, quadrivalent, PF 06/20/2020 [facility] 09/05/2020 15:10:04 Past Encounters Encounter ID Performer Location Encounter Start Date Encounter Closed Date Diagnosis/Indication Diagnosis SNOMED-CT Code Diagnosis ICD10 Code [id number] DO IRVING TOVAR JAVIER [facility] [address] [place] [address] 01/01/2020 13:15:41 01/01/2020 13:56:41 Increased body mass index 73470778 Z68.28 Diet education 66510752 Z71.3 Allergic rhinitis 576808 04 J30.9 Screening for malignant neoplasm of colon 517910606 Z12.11 History of sick sinus syndrome 1098840857 84312 Z86.79 Cota's esophagus 3029 52871 K22.70 Hyperlipidemia 91852221 E78.5 History of malignant neoplasm of prostate 667399315 Z85.46 Essential hypertension 92013578 I10 [id number] [facility] [address] [place] [address] 09/05/2020 15:04:03 09/05/2020 15:33:06 Increased body mass index 44854329 Z68.28 Diet education 93964044 Z71.3 Sebaceous cyst of skin 183076164 L72.3 Herpes zoster 7347248 B0 2.9 [id number] DO IRVING TOVAR JAVIER [facility] [address] [place] [address] 01/26/2022 14:39:59 01/27/2022 08:02:48 Adult health examination 519945922 Z00.00 Hyperlipidemia 71123198 E78.5 History of malignant neoplasm of prostate 174973131 Z85.46 Impaired f asting glycemia 274075714 R73.01 Acute sinusitis 37839450 J01.90 Chronic co ngestive heart failure 27356986 I50.9 [id number] JOY Torres [facility] [address] [place] [address] 02/20/2022 09:53:25 02/20/2022 12:52:21 Acute sinusitis 98536502 J01.90 Impaired f asting glycemia 486061581 R73.01 Hyperlipidemia 03106090 E78.5 Anemia 513966534 D64.9 Decreased renal function 96494572 R94.4 [id number] JOY Torres JAVIER [facility] [address] [place] [address] 10/07/2022 08:51:51 10/07/2022 10:16:10 Impaired fasting glycemia 121430314 R73.01 Hyperlipidemia 62953840 E78.5 Anemia 581761125 D64.9 Decreased renal function 81473373 R94.4 Gastroesop hageal reflux disease 243210325 K21.9 Chronic co ngestive heart failure 34732890 I50.9 [id number] JOY Torres JAVIER [facility] [address] [place] [address] 12/22/2022 09:07:34 12/22/2022 09:53:05 Adult health examination 534619737 Z00.00 Gastroesop hageal reflux disease 893907764 K21.9 Hyperlipidemia 78790652 E78.5 Impaired f asting glycemia 745417058 R73.01 Chronic co ngestive heart failure 06240173 I50.9 Benign ess ential hypertension 9449679 I10 History of malignant neoplasm of prostate 403493623 Z85.46 [id number] [facility] [address] [place] [address] 07/06/2023 09:08:37 07/06/2023 09:41:16 Adult health examination 581718977 Z00.00 Gastroesop hageal reflux disease 348448073 K21.9 Essential hypertension 58888479 I10 Hyperlipidemia 78472979 E78.5 History of malignant neoplasm of prostate 635990417 Z85.46 Impaired f asting glycemia 774171195 R73.01 Increased body mass index 86392627 Z68.27 Diet education 18804039 Z71.3 Nonischemi c congestive cardiomyopathy 0457654246 04 I42.0 Cota's esophagus 3029 92836 K22.70 Chronic co ngestive heart failure 90270280 I50.9 [id number] Elissa Andino MD [facility] [address] [facility] [address] [place] [address] 03/24/2024 10:46:08 03/24/2024 16:37:43 Allergic rhinitis 97468662 J30.9 Gastroesop hageal reflux disease 070114274 K21.9 Hyperlipidemia 04715819 E78.5 Fatigue 58174501 R53.83 Impaired g lucose tolerance 0156332 R73.09 Increased frequency of urination 272731745 R35.0 [id number] Elissa Andino MD [facility] [address] [facility] [address] [place] [address] 03/31/2024 11:36:26 03/31/2024 13:12:42 Hyperlipidemia 08804237 E78.5 Renal impairment 7453265 03 N28.9 Impaired g lucose tolerance 0840887 R73.09 Health Concerns Section Related Observation LastModified by Organization Detai ls LastModified Time None Recorded Concern Status LastModified by Organization Details LastModified Time None Recorded Advance Directives Directive Y: Payers Encounter Date Sequence Insurance Name Policy Number Policy Carrillo Covered Member ID Carrillo Member ID Guarantor Name 10/07/2022 1 [employer] (MEDICARE REPLACEMENT PPO) [id number] Dawit Mcclendon Emerson [id number] Dawit Castelloner 12/22/2022 1 [employer] (MEDICARE REPLACEMENT PPO) [id number] Dawit Castelloner [id number] Dawit Castelloner 07/06/2023 1 [employer] (MEDICARE REPLACEMENT PPO) [id number] Dawit Castelloner [id number] Dawit Castelloner 03/24/2024 1 [employer] (MEDICARE REPLACEMENT PPO) [id number] Dawit Castelloner [id number] Dawit Emerson 03/31/2024 1 [employer] (MEDICARE REPLACEMENT PPO) [id number] Dawit Castelloner [id number] Dawit Emerson Notes Date Note Type Note Provider Name and Address Organization Details Recorded Time 10/07/2022 text/html HPI Notes: Chron ic Complaints follow up Reported by patient. Reason for visit: continued care of chronic complaint(s) Diagnosis: anemia; CHF; dyslipidemia; elevated blood sugar (IFG); GERD Current status: All well controlled/stable Current control and compliance: All usually well controlled/stable ; usually compliant with regimen; exercising regularly; active lifestyle; eating healthy meals Current symptoms/concerns: none stated Notes: he did not complete labs prior to visit today This visit was conducted via our telehealth video visit service. Provider location: in office Patient location: at home address on file Visit Participants in addition to provider and patient: none Patient has given verbal consent to telehealth visit. JOY Torres [id number] [facility] [address], [place], [address], [facility] - [facility], [facility] 10/07/2022 09:51:07 12/22/2022 text/html HPI Notes: Chron ic Complaints follow up Reported by patient. Reason for visit: continued care of chronic complaint(s) Diagnosis: CHF; dyslipidemia; elevated blood sugar (IFG); GERD Current status: All well controlled/stable Current control and compliance: All usually well controlled/stable ; usually compliant with regimen; exercising regularly; active lifestyle; eating healthy meals Current symptoms/concerns: none stated Medicare Annual Wellness Visit Reported by patient. Visit type: subsequent Medicare Annual Wellness visit PMH/FH/Rx and Social History Review: updated EMR in appropriate tabs JOY Torres [address], [place], [address], [employer] 12/22/2022 12:43:48 07/06/2023 text/html HPI Notes: Chron ic Complaints follow up Reported by patient. Reason for visit: continued care of chronic complaint(s) Diagnosis: anemia; arthritis ; CHF; dyslipidemia; elevated blood sugar (IFG); GERD; sick sinus syndrome Current status: All well controlled/stable Current control and compliance: All usually well controlled/stable ; usually compliant with regimen; exercising regularly; active lifestyle; eating healthy meals Current symptoms/concerns: none stated Medicare Annual Wellness Visit Reported by patient. Visit type: subsequent Medicare Annual Wellness visit PMH/FH/Rx and Social History Review: updated EMR in appropriate tabs MARGRET ARGUETA DO [address], [place], [address], [employer] 07/06/2023 09:46:37 03/24/2024 text/html HPI Notes: Dyslipidemia Reported by patient. Reason for visit: continued care of chronic complaint Complications due to diagnosis: no complicatons Current therapy: medication list reviewed; using other therapeutic lifestyle changes; no side effects from medication Current control and compliance: usually well controlled, asymptomatic; usually compliant with regimen; improving control since last visit Current Symptoms/Concerns: no myalgias; no chest pain; no shortness of breath; no fatigue; no headaches; no blurred vision; no edema GI Complaint* Reported by patient. Reason for visit: continued care of chronic complaint GI Complaint*: GERD Severity: mild 4/10 Duration: intermittent Alleviating Factors prescription Rx Associated Symptoms: no concerns noted; no fever; no chills; no heartburn; no shortness of breath; no nausea; no vomiting; no diarrhea; no constipation Elissa Andino MD [address], [place], [address], [facility] 03/24/2024 19:58:14 03/31/2024 text/html HPI Notes: Abnor mal Test Result Reported by patient. Reason for visit: follow-up of acute complaint Abnormality: abnormal lab Severity: mild abnormality; unchanged Context: found on routine exam; triglycerides more than 400- routine ETOH use Associated Symptoms: no malaise; no easy bruising; no abdominal pain; no nausea Notes: KIDNEY FUNCTION ABNORMALITY The patient has abnormal BUN/creatinine. Doesn't use NSAIDs, no previous hx of renal disease. Long hx of using PPI. States drinks enough fluids, denies flank pain, hematuria.Previous labs are unknown This visit was conducted via our telehealth video visit service. Provider location: in office Patient location: at home address on file Visit Participants in addition to provider and patient: none Patient has given verbal consent to telehealth visit. Elissa Andino MD [address], [place], [address], [facility], [facility] [place] 04/06/2024 20:29:32
--- OUTSIDE RECORDS SUMMARY | 2024-04-29 16:57 | XMS_ITS | Patient Health Record ---
Author Organization [facility] Address [id number] [address] Care Team Providers Care Nuclear Physicist Name Role Phone Russell Rodgers Primary Care Provider Nicolette Crouch DO Unavailable [phone] ALLERGIES Allergen (clinical drug ingredient) Drug/Non Drug Allergy documented on EMR Reaction Allergy Type Onset Date Status Penicillin Unknown Drug Allergy Active REASON FOR REFERRAL No Information MEDICATIONS Medication SIG (Take, Route, Frequency, Duration) Notes Start Date End Date Status Carvedilol 25 MG 1 tablet with food O ral Twice a day for 90 Days Active Atorvastatin Calcium 40 MG 1 tablet Oral Once a day for 90 Days Active Fluticasone Propionate 50 MCG/ACT SPRAY 1 SPRAY INTO EACH NOSTRIL EVERY DAY Nasal for 30 Days Not-Taking ZyrTEC Allergy 10 MG 1 tablet Orally Onc e a day Active Lisinopril 5 MG 1 tablet Oral twice a day for 90 Days Not-Taking Omeprazole 40 MG 1 capsule 30 minutes before morning meal Oral Once a day for 90 Days Active Sutab 3805-043-122 MG as directed Orally as directed for 1 day 07/02/2022 Active Sutab 9915-952-413 MG as directed Orally per prep instructions for 2 days Active SOCIAL HISTORY Tobacco Use: Social History Observation Description Date Details (start date - stop date) Former Smoker NA - NA Sex Assigned At : Social History Observation Description Sex Assigned At Unknown Tobacco Use/Smoking Question Answer Notes Are you a? former smoker Additional Findings: Tobacco User Heavy cigarett e smoker (20-39 cigs/day) Additional Findings: Tobacco Non-User Current no n-smoker Alcohol Screen (Audit-C) Question Answer Notes Did you have a drink contain ing alcohol in the past year? Yes How often did you have a dri nk containing alcohol in the past year? 4 or more times a week (4 points) How many drinks did you have on a typical day when you were drinking in the past year? 1 or 2 drinks (0 point) How often did you have 6 or more drinks on one occasion in the past year? Never (0 point) Points 4 Interpretation Positive PROBLEMS Problem Type ICD Code Onset Dates Problem Status W/U Status Risk SNOMED Code Notes Problem Personal history of colonic polyps (Z86.010) Active confirmed History of polyp of colon (situation) (758456845) Problem History of colon polyps (Z86.010) Active confirmed History of polyp of colon (597169579) Last colonoscopy was in 2018 and given a 3 year follow-up recommendation for polyps. The risks, benefits, alternatives, and indications of the procedure were discussed with the patient in detail and they voiced understanding and agree to proceed. All questions were answered. Sutab bowel prep was ordered. Problem Pacemaker (Z95.0) Active confirmed Cardiac pacemaker in situ (205124651) Problem Barretts esophagus (K22.70) Active confirmed Barretts esophagus (277140967) We will plan for EGD at the time of colonoscopy. Continue omeprazole. Problem Defibrillator (Z95.810) Active confirmed Defibrillator (11578678) We will plan to proceed with procedures at the hospital due to defibrillator. We will also request cardiac clearance prior to procedure. PLAN OF TREATMENT No Information Insurance Providers Payer Name Payer Address Payer Phone Subscriber Number Group Number Insured Name Patient Relationship to Insured Coverage Start Date Coverage End Date [employer] MED[employer] PLAN PPO [address] [place] [phone] [id number] Dawit Emerson Self - patient is the insured MEDICAL (GENERAL) HISTORY Medical History History ICD Code S/P GA 07/2021 Hyperlipidemia Hypertension Surgical History Surgery Date(Month/Year) pacemaker 2013 next echo and stress in july Dr. gastelum [id number] Colonoscopy & EGD Dr. cintron [id number] 2017 shoulder repair x2
--- OUTSIDE RECORDS SUMMARY | 2024-04-29 16:57 | XMS_ITS | Referral Summary ---
Author Organization [facility] Address [address] [place] [id number] Care Team Providers Care Hydraulic Engineer Name Role Phone Salvador Rivera MD Primary Care Provider [phone] Allergies Active Allergy Reactions Criticality Noted Date [...] of Treatment Not on file Care Teams Hydraulic Engineer Relationship Specialty Start Date End Date Salvador Rivera MD [facility] [address] [place] [address] PCP - General Family Practice 02/03/18
[2024-04-29 16:58] LABS: Slide Review Reflex No
--- OUTSIDE RECORDS SUMMARY | 2024-04-29 16:58 | XMS_ITS | Continuity of Care Document ---
Author Organization [place] - [employer], [employer], [facility] [address] Address [address] [place] [address] Care Team Providers Care Occupational Safety Specialist Name Role Phone MARGRET ARGUETA Primary Care Provider [phone] MARGRET ARGUETA Referring Provider ASHLEY SWAN Lunchroom Operator Assessment No assessment recorded. Plan of Treatment Reminders Order Date Submit Date Provider Last Modified By Organization Details Last Modified Time Details Appointments None recorded. Lab HbA1c (hemoglobin A1c), blood 2023 [employer] [facility], [address] [place] [address], [address], 4 06:37:46 lipid panel, serum 2023 024 [employer] [facility], [address] [place] [address], [address], 4 06:37:44 CMP, serum or plasma 2023 024 [employer] [facility], [address] [place] [address], [address], 4 06:37:45 CBC w/ auto diff 2023 024 [employer] [facility], [address] [place] [address], [address], 4 06:37:47 TSH, serum or plasma 2023 024 [employer] [facility], [address] [place], [address], 4 06:37:46 urinalysis complete, reflex culture 2023 [employer] [facility], [address] [place], [address], 4 06:37:47 Referral None recorded. Procedures None recorded. Surgeries None recorded. Imaging None recorded. Medication Orders fluticasone propionate 50 mcg/actuati on nasal spray,suspe nsion 2023 [facility] #[id number], [address] [place], [address], 4 12:08:49 omeprazole 40 mg capsule,del ayed release 2023 gala camacho [facility] #[id number], [address], [place], [address], 4 12:08:53 Patient TargetsNo targets recorded. Patient Instructions Encounter Date Encounter Id Patient Instructions Last Modified By Organization Details Last Modified Time 03/24/2024 [id number] SCREENING SCHEDULE DEPRESSION SCREENING: {{A Depression Screening Assessment was conducted, with staff-assisted depression care supports during this encounter and all actions of this assessment and time elements of up to 15 minutes were met.* Not necessary, patient diagnosed with depression up-to-d ate}} COLORECTAL CANCER SCREENING: {{Colonoscopy, average risk, every 10 years unless advised differently by provider* Patient refuses Colonoscopy, alternate screening recommended Colono scopy, increased risk, every 5 years Colonoscopy, significantly increased risk, 3 years Cologuard every 3 years for average risk patients Colonosco py, high risk, 1 year IFOBT annually, refuses colonoscopy no longer recommended patient refuses further screenings up-to-d ate (view surgical history for recommendations)}} CERVICAL CANCER SCREENING - PAP (female only): {{no longer recommended due to hysterectomy, age, and/or low risk unless advised differently by provider* history of abnormal paps, follow up with Sed Special Education Teacher pt refuses further screening up-to-da te N/A}} BREAST CANCER SCREENING: Mammogram: {{recommended annually unless advised differently by provider* bi-annua lly no longer recommended due to mastectomy and/or age patient refuses further screening up-to-da te N/A}} OSTEOPOROSIS SCREENING - Bone density (female only): {{every 2 years pt refuses further screening up-to-da te N/A At age 65 and every 2 years or as advised by your provider*}} CARDIOVASCULAR RISK SCREENING - AAA screening (male only): {{up-to-date N/A r ecommended due to family history of AAA not recommended pt refuses screening Recommen ded once per lifetime, if personal history of smoking greater than 100 cigs and age 65-75*}} VACCINE RECOMMENDATIONS: (except if you have experienced severe allergic reaction [e.g. anaphylaxis] after a previous dose/a component of these vaccines OR otherwise advised by your provider not to receive it) Covid vaccine: {{booster up-to-date not up to date, recommended vaccine/booster pt refuses vaccine/booster not recommended due to co-morbid condition/risk COV ID-19 vaccination up-to-date*}} Influenza vaccine: {{vaccination up to date for current flu season not recommended patien t refuses vaccine N/A recomm ended annually*}} Pneumococcal Vaccine: {{Prevnar 20 recommended up to date* pt refuses vaccine not recommended Prevna r 15 needed to complete PCV regimen Pneumovax 23 needed to complete PCV regimen}} Shingles vaccine - Shingrix: {{recommended vacc ination up to date* not recommended pt refuses vaccine }} Tetanus vaccine: {{recommended every 10 years* recommended vaccination up to date not recommended patien t refuses vaccine }} [email or web address] Not available 03/22/2024 16:57:22 Reason for Referral Digital Performance Analyst Referral for Screening for malignant neoplasm of colon Referring Physician: Margret Argueta, Family Medicine, Encounter Date: 01/01/2020 General Surgeon Referral for Sebaceous cyst of skin Pt has a PPO plan and does not require a referral to be seen. If a prior auth is required for additional procedures or testing please submit a request directly to patient's insurance Referring Physician: Margret Argueta, Family Medicine, Encounter Date: 09/05/2020 Problems Name Problem SNOMED Code Status Onset Date Resolution Date Notes Provider Name and Address Organization Details Recorded Time Automatic implantable cardiac defibrillat or in situ 289860126 Active 2021 MARGRET ARGUETA DO [address], [place], [address], [facility] [place] [facility], [facility] 2 15:00:04 Chronic congestive heart failure 23631129 Active 2021 MARGRET ARGUETA DO [address], [place], [address], [facility] [place] [facility], [facility] 2 22:40:23 Impaired fasting glycemia 163593802 Active 2021 MARGRET ARGUETA DO [address], [place], [address], [facility] [place] [facility], [facility] 2 22:40:40 Adult health examination Active 2021 MARGRET ARGUETA DO [address], [place], [employer], [address], [facility] [place] [facility], [facility] 2 22:40:49 Essential hypertensio n 46817902 Active 2022 MARGRET ARGUETA DO [address], [place], [address], [facility] [place] [facility], [facility] 3 09:38:33 Aortic valve regurgitati on 69428417 Active 2022 MARGRET ARGUETA DO [address], [place], [address], [facility] [place] [facility], [facility] 3 09:40:58 Nonischemic congestive cardiomyopa thy 460337201837 Active 2022 MARGRET ARGUETA DO [address], [place], [address], [facility] [place] [facility], [facility] 3 09:41:45 Left bundle branch block 73696440 Active 2022 MARGRET ARGUETA, DO [address], [place], [address], [facility], [facility] 3 09:41:55 Coronary arterioscle rosis 50218459 Active 2022 MARGRET ARGUETA, DO [address], [place], [address], [facility], [facility] 3 09:42:04 Dilatation of aorta 86018485 Active 2022 MARGRET ARGUETA, DO [address], [place], [address], [facility], [facility] 3 09:42:24 Gastroesoph ageal reflux disease 241971981 Active 2019 MARGRET ARGUETA, DO [address], [place], [employer], [address], [facility], [facility] 0 13:37:32 Hyperlipide jose 72288813 Active 2019 MARGRET ARGUETA, DO [address], [place], [employer], [address], [facility], [facility] 0 13:37:36 Arthritis 5986973 Active 2019 MARGRET ARGUETA, DO [address], [place], [address], [facility], [facility] 0 13:41:41 History of sick sinus syndrome 3844070570863 03 Active 2019 MARGRET ARGUETA, DO [address], [place], [address], [facility], [facility] 0 13:59:28 Bajwa's esophagus 281606311 Active 2019 MARGRET ARGUETA, DO [address], [place], [address], [facility], [facility] 0 14:02:13 History of malignant neoplasm of prostate 211243002 Active 2019 MARGRETMARGOT ARGUETADO [address] [facility], [place], [address], [facility] Physician [facility], [facility] 14:02:26 Problem Notes None recorded. Procedures Surgical History Date Name Laterality Status Provider Name and Address Organization Details Recorded Time 03/24/20 Quality Advanced Care Planning completed Kitty hugo [facility], [facility] 03/22/2024 16:57:22 03/24/20 24 Quality Incontinence Screening completed Kitty hugo [facility], [facility] 03/22/2024 16:57:22 07/06/20 23 Quality Functional Assessment completed Gisele hugo [facility], [facility] 07/06/2023 07:03:10 07/06/20 23 Quality Medication Reviewed and Updated completed Gisele hugo [facility], [facility] 07/06/2023 07:03:10 07/06/20 23 Medicare AWV Questionnaire completed Gisele hugo [facility], [facility] 07/06/2023 09:18:15 07/06/20 23 Quality BMI with follow up completed Gisele hugo [facility], [facility] 07/06/2023 07:03:10 07/06/20 23 Quality Advanced Care Planning completed Gisele hugo [facility], [facility] 07/06/2023 07:03:10 07/06/20 23 Quality Incontinence Screening completed Gisele hugo [facility], [facility] 07/06/2023 07:03:10 07/06/20 23 Medicare AWV-Screening Schedule completed Gisele hugo [facility], [facility] 07/06/2023 07:03:10 07/06/20 23 Quality Fall Risk Assessment completed Gisele hugo [facility], [facility] 07/06/2023 07:03:10 12/23/19 23 Quality Functional Assessment completed Jose Francisco hugo [facility], [facility] 12/22/2022 09:13:59 12/23/19 23 Quality Medication Reviewed and Updated completed Jose Francisco hugo [facility], [facility] 12/22/2022 09:13:59 12/23/19 23 Medicare AWV Questionnaire completed JOY Torres [address] [facility], [place], [address], [facility], [facility] 12/22/2022 09:46:26 12/23/19 23 Quality BMI with follow up completed Jose Francisco hugo [facility], [facility] 12/22/2022 09:13:59 12/23/19 23 Quality Advanced Care Planning completed Jose Francisco hugo [facility], [facility] 12/22/2022 09:13:59 12/23/19 23 Quality Incontinence Screening completed Jose Francisco hugo [facility], [facility] 12/22/2022 09:13:59 12/23/19 23 Quality Fall Risk Assessment completed Jose Francisco hugo [facility], [facility] 12/22/2022 09:13:59 05/23/20 22 colonoscopy completed Jose Francisco hugo, [facility], [facility] 12/22/2022 09:20:23 01/27/20 22 Quality Functional Assessment completed Allison hugo [facility], [facility] 01/22/2022 12:49:50 01/27/20 22 Quality Medication Reviewed and Updated completed Allison hugo [facility], [facility] 01/22/2022 12:49:49 01/27/20 22 Quality BMI with follow up completed Allison hugo [facility], [facility] 01/22/2022 12:49:50 01/27/20 22 Quality Advanced Care Planning completed Allison hugo [facility], [facility] 01/22/2022 12:49:50 01/27/20 22 Quality Incontinence Screening completed Allison hugo [facility], [facility] 01/22/2022 12:49:50 01/27/20 22 Medicare AWV-Screening Schedule completed Allison hugo [facility], [facility] 01/22/2022 12:49:50 01/27/20 22 Quality Fall Risk Assessment completed Allison Talamantes [facility] 01/22/2022 12:49:50 06/23/20 19 Biopsy completed Kaylie Dan [facility] 01/01/2020 13:26:43 01/22/20 18 Colonoscopy completed Kaylie Dan [facility] 01/01/2020 13:34:13 01/22/20 15 Pacemaker implantation completed MARGRET ARGUETA DO [address], [place], [address], [facility] 07/06/2023 09:33:24 12/22/19 06 Prostatectomy completed MARGRET ARGUETA DO [address], [place], [address], [facility] 01/01/2020 13:44:03 08/23/18 75 Vasectomy completed Kaylie Dan [facility] 01/01/2020 13:26:43 Imaging Results None recorded. Procedure Notes None recorded. Medical Equipment None Reported. Allergies Allergen ID Allergen Name Allergen Category Reaction Reaction Severity Criticality Documentation Date Start Date Code Code System Note Provider Name and Address Organization Details Recorded Time 8048086 adhesive tape environme nt,medica tion rash Not available Not available 01/26/2022 Janelle Goodman [facility] 2 14:54:41 395460 Penicilli n Not available itching rash Not available moderate Not available 01/01/2020 88344 RxNorm Kaylie Dan [facility] 0 13:26:05 Medications Name Sig Start Date [...] Updated DateTime 4 186.69 cm 27.9 kg/m2 20475.7 7 g 62 /min 94 % 94 % 16 /min 98.2 [degF] 124 mm[Hg] 58 mm[Hg] Kitty travis [facility], [facility] 4 11:28:23 Social History Question Answer Notes LastModified by Organization Details LastModified Time Tobacco Smoking Status Former Smoker [facility] hugo [place] [facility] 01/01/2020 13:26:36 Do You Have An Advance Directive? Yes Information not available 01/01/2020 Is Your Home Air Conditioned? Yes Information not available 03/24/2024 What Is Your Level Of Alcohol Consumption? Occasional Information not available 01/01/2020 Do You Wear A Helmet When Biking? No [email or web address] Information not available 01/26/2022 Is Blood Transfusion Acceptable In An Emergency? Yes [email or web address] Information not available 01/26/2022 What Is Your Level Of Caffeine Consumption? Moderate Information not available 01/01/2020 How Much Tobacco Do You Chew? None Information not available 01/01/2020 In The 14 Days Before Symptom Onset, Have You Had Close Contact With A Laboratory-confi rmed COVID-19 While That Case Was Ill? No [email or web address] Information not available 01/26/2022 In The 14 Days Before Symptom Onset, Have You Had Close Contact With A Person Who Is Under Investigation For COVID-19 While That Person Was Ill? No [email or web address] Information not available 01/26/2022 Have You Been To An Area Known To Be High Risk For COVID-19? No [email or web address] Information not available 01/26/2022 Are You Currently Employed? No [email or web address] Information not available 01/26/2022 What Type Of Diet Are You Following? REGULAR Information not available 01/01/2020 Which Illicit Or Recreational Drugs Have You Used? None Information not available 01/01/2020 Do You Or Have You Ever Used E-cigarettes Or Vape? Never Used Electronic Cigarettes Information not available 01/01/2020 Education 12 [email or web address] Information not available 01/26/2022 What Is The Highest Grade Or Level Of School You Have Completed Or The Highest Degree You Have Received? [id number] Information not available 03/24/2024 Have There Been Any Changes To Your Family Or Social Situation? No [email or web address] Information not available 01/26/2022 When Did You Quit Smoking? 17+yearssincelastteresa bernabe Quit 57 Years Ago Information not available 03/24/2024 Are There Any Guns Present In Your Home? No Information not available 02/20/2022 Where Do You Live? SingleLevelHouse [email or web address] Information not available 12/22/2022 Alcohol Use No Information not available 01/01/2020 Do You Smoke? No Information not available 02/20/2022 Marital Status [email or web address] Informatio n not available 01/26/2022 Do You Have A Medical Power Of Custodial Officer? Yes [email or web address] Information not available 01/26/2022 What Was The Date Of Your Most Recent Tobacco Screening? 03/24/2024 Information not available 03/24/2024 What Is Your Relationship Status? [email or web address] Information not available 01/26/2022 Do You Use Your Seat Belt Or Car Seat Routinely? Yes [email or web address] Information not available 01/26/2022 Are You Sexually Active? No [email or web address] Information not available 01/26/2022 Do You Have Smoke And Carbon Monoxide Detectors In Your Home? Yes [email or web address] Information not available 01/26/2022 Are You Passively Exposed To Smoke? No [email or web address] Information not available 01/26/2022 Do You Or Have You Ever Used Smokeless Tobacco? Never Used Smokeless Tobacco Information not available 01/01/2020 Are There Any Smokers In Your House? No Information not available 03/24/2024 Do You Use Any Illicit Or Recreational Drugs? No [email or web address] Information not available 01/26/2022 Do You Use Sunscreen Routinely? No Information not available 01/26/2022 Has Tobacco Cessation Counseling Been Provided? Yes Information not available 12/22/2022 On What Date Was Tobacco Cessation Counseling Provided? 12/22/2022 [email or web address] Information not available 12/22/2022 Do You Or Have You Ever Used Any Other Forms Of Tobacco Or Nicotine? No [email or web address] Information not available 01/26/2022 Sex: Male Functional [...] N Thyroid Disease N Kidney Stones N Emphysema/COPD N Measles/Mumps N Sexually Transmitted Disease N Depression N Prostate Problems Y Vascular Disease N Rash/Skin Condition N Amputation (location) N Parkinson's N Paralysis N Cardiac Pacemaker/defibrillator Y Headaches/Migraines N Nerve Damage / Neuropathy N Arthritis N Sleep disorder/Insomnia N Infertility N Heart disease / Heart Attack N Crohn's Disease N HIV/AIDS N Stroke/TIA N Colon Problems N High Cholesterol N Serious Injuries N Kidney Disease N Memory Loss/Alzheimer's N High blood pressure N Gallbladder disease N Congestive heart failure N Falls N Hormone Replacement N Blood Thinner Treatment N Alcohol Overuse N Nervous Breakdown N Bajwa's Esophagus Y Anemia N Urinary Problems N [...] high-dose, trivalent, PF 06/06/2019 completed Kaylie hugo [facility] 01/01/2020 13:25:33 Influenza, high-dose, trivalent, PF 07/25/2018 completed Kaylie hugo [facility] 01/01/2020 13:25:33 Influenza, adjuvanted, quadrivalent, PF 06/20/2020 [facility] 15:10:04 Past Encounters Encounter ID Performer Location Encounter Start Date Encounter Closed Date Diagnosis/Indication Diagnosis SNOMED-CT Code Diagnosis ICD10 Code [id number] [facility] [address] [facility] [address] [place] [address] 03/24/2024 10:46:08 03/24/2024 16:37:43 Allergic rhinitis 86434455 J30.9 Gastroesop hageal reflux disease 320678811 K21.9 Hyperlipidemia 84366939 E78.5 Fatigue 92323126 R53.83 Impaired g lucose tolerance 1470859 R73.09 Increased frequency of urination 172268819 R35.0 Health Concerns Section Related Observation LastModified by Organization Detai ls LastModified Time None Recorded Concern Status LastModified by Organization Details LastModified Time None Recorded Payers Encounter Date Sequence Insurance Name Policy Number Policy Carrillo Covered Member ID Carrillo Member ID Guarantor Name 03/24/2024 1 [employer] (MEDICARE REPLACEMENT PPO) [id number] Dawit Emerson [id number] Dawit Emerson Notes Date Note Type Note Provider Name and Address Organization Details Recorded Time 03/24/2024 text/html HPI Notes: Dyslipidemia Reported by [...] chronic complaint GI Complaint*: GERD Severity: mild /10 Duration: intermittent Alleviating Factors prescription Rx Associated Symptoms: no concerns noted; no fever; no chills; no heartburn; no shortness of breath; no nausea; no vomiting; no diarrhea; no constipation Elissa Andino MD [address] [address], [place], [address], [facility], [facility] 03/24/2024 19:58:14
--- OUTSIDE RECORDS SUMMARY | 2024-04-29 16:58 | XMS_ITS | Continuity of Care Document ---
Author Organization [place] - [employer], [place], [facility] [address] Address [address] [place] [address] Care Team Providers Care Kitchen Hand Name Role Phone MARGRET ARGUETA Primary Care Provider [phone] MARGRET ARGUETA Referring Provider ASHLEY SWAN [employer] Stockman Assessment No assessment recorded. Plan of Treatment Reminders Order Date Submit Date Provider Last Modified By Organization Details Last Modified Time Details Appointments None recorded. Lab HbA1c (hemoglobi n A1c), blood 2023 024 [facility], [address] [place] [address], [address], 4 20:47:11 CMP, serum or plasma 2023 024 [facility], [address] [place] [address], [address], 4 20:47:12 lipid panel, serum 2023 024 [email or web address] a1 [facility], [address] [place] [address], [address], 4 20:45:32 CMP, serum or plasma 2023 024 mloukanov a1 [facility], [address], [address], 4 20:45:27 urinalysis , complete 2023 024 [employer]China [employer]ologic Productska[employer]oshi a1 [facility], [address] [place], [address], 4 20:45:28 protein:cr eatinine ratio, urine 2023 024 [facility] a1 [facility], [address] [place], [address], 4 20:45:28 uric acid, serum or plasma 2023 024 [facility] a1 [facility], [address] [place], [address], 20:45:29 Referral None recorded. Procedures None recorded. Surgeries None recorded. Imaging US, kidney - please schedule in May, when pt is back from up [place] 2023 024 [employer] [facility], [address], [place], [address], 20:45:30 Medication Orders None recorded. Patient TargetsNo targets recorded. Patient InstructionsNo instructions recorded. 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 If a prior auth is required for additional procedures or testing please submit a request directly to patient's insurance Referring Physician: Family Malou Cruz, Encounter Date: 09/05/2020 Problems Name Problem SNOMED Code Status Onset Date Resolution Date Notes Provider Name and Address Organization Details Recorded Time Automatic implantable cardiac defibrillat or in situ 302193731 Active 2021 MARGRET ARGUETA DO [address] [facility] [address], [place], [address], [facility] - [facility]ician [facility], [facility] 06/06/202 2 15:00:04 Chronic congestive heart failure 07845741 Active 2021 MARGRET ARGUETA, DO [address], [place], [address], [facility], [facility] 2 22:40:23 Impaired fasting glycemia 132286211 Active 2021 MARGRET ARGUETA, DO [address], [place], [address], [facility], [facility] 2 22:40:40 Adult health examination Active 2021 MARGRET ARGUETA, DO [address], [place], [address], [facility], [facility] 2 22:40:49 Essential hypertensio n 17490306 Active 2022 MARGRET ARGUETA, DO [address], [place], [address], [facility], [facility] 3 09:38:33 Aortic valve regurgitati on 79774738 Active 2022 MARGRET ARGUETA, DO [address], [place], [address], [facility], [facility] 3 09:40:58 Nonischemic congestive cardiomyopa thy 876119286282 Active 2022 MARGRET ARGUETA, DO [address], [place], [address], [facility], [facility] 3 09:41:45 Left bundle branch block 92339210 Active 2022 MARGRET ARGUETA DO [address], [place], [address], [facility], [facility] 3 09:41:55 Coronary arterioscle rosis 07229223 Active 2022 MARGRET ARGUETA, DO [address], [place], [address], [facility], [facility] 3 09:42:04 Dilatation of aorta 39707818 Active [address], [place], [address], [facility], [facility] 3 09:42:24 Gastroesoph ageal reflux disease 924093345 Active [address], [place], [address], [facility], [facility] 0 13:37:32 Hyperlipide jose 85043348 Active [address], [place], [address], [facility], [facility] 0 13:37:36 Arthritis 1354867 Active [address], [place], [address], [facility], [facility] 0 13:41:41 History of sick sinus syndrome 7434010738417 03 Active [address], [place], [address], [facility], [facility] 0 13:59:28 Bajwa's esophagus 231376811 Active [address], [place], [address], [facility], [facility] 0 14:02:13 History of malignant neoplasm of prostate 917792106 Active [address], [place], [address], [facility], [facility] 0 14:02:26 Problem Notes None recorded. Procedures Surgical History Date Name Laterality Status Provider Name and Address Organization Details Recorded Time 03/24/20 Quality Advanced Care Planning completed Kitty hugo, [facility], [facility] 03/22/2024 16:57:22 03/24/20 24 Quality Incontinence Screening completed Kitty hugo [facility], [facility] 03/22/2024 16:57:22 07/06/20 23 Quality Functional Assessment completed Gisele hugo [facility], [facility] 07/06/2023 07:03:10 07/06/20 23 Quality Medication Reviewed and Updated completed Gisele hugo [facility], [facility] 07/06/2023 07:03:10 07/06/20 23 Medicare AWV Questionnaire completed Gisele hugo [facility], [facility] 07/06/2023 09:18:15 07/06/20 23 Quality BMI with follow up completed Gisele hugo [facility], [facility] 07/06/2023 07:03:10 07/06/20 23 Quality Advanced Care Planning completed Gisele hugo [facility], [facility] 07/06/2023 07:03:10 07/06/20 23 Quality Incontinence Screening completed Gisele hugo [facility], [facility] 07/06/2023 07:03:10 07/06/20 23 Medicare AWV-Screening Schedule completed Gisele hugo [facility], [facility] 07/06/2023 07:03:10 07/06/20 23 Quality Fall Risk Assessment completed Gisele hugo [facility], [facility] 07/06/2023 07:03:10 12/23/19 23 Quality Functional Assessment completed Jose Francisco hugo [facility], [facility] 12/22/2022 09:13:59 12/23/19 23 Quality Medication Reviewed and Updated completed Jose Francisco hugo [facility], [facility] 12/22/2022 09:13:59 12/23/19 23 Medicare AWV Questionnaire completed JOY Torres [address] [facility], [place], [address], [facility], [facility] 12/22/2022 09:46:26 12/23/19 23 Quality BMI with follow up completed Jose Francisco hugo [facility], [facility] 12/22/2022 09:13:59 12/23/19 23 Quality Advanced Care Planning completed Jose Francisco hugo, [facility], [facility] 12/22/2022 09:13:59 12/23/19 23 Quality [facility]ence Screening [facility] 12/22/2022 09:13:59 12/23/19 23 Quality Fall Risk Assessment [facility] 12/22/2022 09:13:59 05/23/20 22 colonoscopy completed Jose Francisco hugo, [facility], [facility] 12/22/2022 09:20:23 01/27/20 22 Quality Functional Assessment [facility], [facility] 01/22/2022 12:49:50 01/27/20 22 Quality Medication Reviewed and Updated [facility], [facility] 01/22/2022 12:49:49 01/27/20 22 Quality BMI with follow up [facility] 01/22/2022 12:49:50 01/27/20 22 Quality Advanced Care Planning [facility], [facility] 01/22/2022 12:49:50 01/27/20 22 Quality Incontinence Screening [facility], [facility] 01/22/2022 12:49:50 01/27/20 22 Medicare AWV-Screening Schedule [facility] 01/22/2022 12:49:50 01/27/20 22 Quality Fall Risk Assessment [facility] 01/22/2022 12:49:50 06/23/20 19 Biopsy completed Kaylie hugo, [facility], [facility] 01/01/2020 13:26:43 01/22/20 18 Colonoscopy completed Kaylie hugo, [facility], [facility] 01/01/2020 13:34:13 01/22/20 15 Pacemaker implantation completed MARGRET ARGUETA, DO [address], [place], [address], [facility], [facility] 07/06/2023 09:33:24 12/22/19 06 Prostatectomy completed MARGRET ARGUETA, DO [address], [place], [address], [facility] 01/01/2020 13:44:03 08/23/18 75 Vasectomy completed Kaylie Fongsanam [facility] 01/01/2020 13:26:43 Imaging Results None recorded. Procedure Notes None recorded. Medical Equipment None Reported. Allergies Allergen ID Allergen Name Allergen Category Reaction Reaction Severity Criticality Documentation Date Start Date Code Code System Note Provider Name and Address Organization Details Recorded Time 6749518 adhesive tape environme nt,medica tion rash Not available Not available 01/26/2022 Janelle Goodman [facility] 2 14:54:41 186640 Penicilli n Not available itching rash Not available moderate Not available 01/01/2020 27333 RxNorm Kaylie Ajitsanam [facility] 0 13:26:05 Medications Name Sig Start Date [...] Updated DateTime 03/31/2024 186.69 cm 27.6 kg/m2 14640.58 g Naomi Capone [facility] 03/31/2024 11:43:14 Social History Question Answer Notes LastModified by Organization Details LastModified Time Tobacco Smoking Status [facility] 01/01/2020 13:26:36 Do You Have An Advance Directive? Yes Information not available 01/01/2020 Is Your Home Air Conditioned? Yes Information not available 03/24/2024 What Is Your Level Of Alcohol Consumption? Occasional Information not available 01/01/2020 Do You Wear A Helmet When Biking? No [email or web address] Information not available 01/26/2022 Is Blood Transfusion Acceptable In An Emergency? Yes [email or web address] Information not available 01/26/2022 What Is Your Level Of Caffeine Consumption? Moderate Information not available 01/01/2020 How Much Tobacco Do You Chew? None Information not available 01/01/2020 In The 14 Days Before Symptom Onset, Have You Had Close Contact With A Laboratory-confi rmed COVID-19 While That Case Was Ill? No Information not available 01/26/2022 In The 14 Days Before Symptom Onset, Have You Had Close Contact With A Person Who Is Under Investigation For COVID-19 While That Person Was Ill? No Information not available 01/26/2022 Have You Been To An Area Known To Be High Risk For COVID-19? No [email or web address] Information not available 01/26/2022 Are You Currently Employed? No [email or web address] Information not available 01/26/2022 What Type Of Diet Are You Following? REGULAR Information not available 01/01/2020 Which Illicit Or Recreational Drugs Have You Used? None Information not available 01/01/2020 Do You Or Have You Ever Used E-cigarettes Or Vape? Never Used Electronic Cigarettes Information not available 01/01/2020 Education 12 [email or web address] Information not available 01/26/2022 What Is The Highest Grade Or Level Of School You Have Completed Or The Highest Degree You Have Received? [id number] Information not available 03/24/2024 Have There Been Any Changes To Your Family Or Social Situation? No [email or web address] Information not available 01/26/2022 When Did You Quit Smoking? 17+yearssincelastteresa bernabe Quit 56 Years Ago Information not available 03/24/2024 Are There Any Guns Present In Your Home? No Information not available 02/20/2022 Where Do You Live? SingleLevelHouse [email or web address] Information not available 12/22/2022 Alcohol Use No Information not available 01/01/2020 Do You Smoke? 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 Yes [email or web address] Information not available 01/26/2022 What Was The Date Of Your Most Recent Tobacco Screening? 03/24/2024 Information not available 03/24/2024 What Is Your Relationship Status? [email or web address] Information not available 01/26/2022 Do You Use Your Seat Belt Or Car Seat Routinely? Yes [email or web address] Information not available 01/26/2022 Are You Sexually Active? No [email or web address] Information not available 01/26/2022 Do You Have Smoke And Carbon Monoxide Detectors In Your Home? Yes Information not available 01/26/2022 Are You Passively Exposed To Smoke? No [email or web address] Information not available 01/26/2022 Do You Or Have You Ever Used Smokeless Tobacco? Never Used Smokeless Tobacco Information not available 01/01/2020 Are There Any Smokers In Your House? No Information not available 03/24/2024 Do You Use Any Illicit Or Recreational Drugs? No [email or web address] Information not available 01/26/2022 Do You Use Sunscreen Routinely? No [email or web address] Information not available 01/26/2022 Has Tobacco Cessation Counseling Been Provided? Yes [email or web address] Information not available 12/22/2022 On What Date Was Tobacco Cessation Counseling Provided? 12/22/2022 Information not available 12/22/2022 Do You Or Have You Ever Used Any Other Forms Of Tobacco Or Nicotine? No [email or web address] Information not available 01/26/2022 Sex: Male Functional Status Question Answer Note LastModified by Organization D etails LastModified Time What is your exercise level? Moderate Information not available 01/01/2020 Mental Status None recorded. Family History Relationship Description Onset Age of this Age Resolved Age Notes Father Heart disease Medical History Condition Response Cancer (location) Y Gout N Other N Thyroid Disease N Kidney Stones N Measles/Mumps N Emphysema/COPD N Sexually Transmitted Disease N Depression N Prostate Problems Y Vascular Disease N Rash/Skin Condition N Amputation (location) N Cardiac Pacemaker/defibrillator Y Headaches/Migraines N Paralysis N Parkinson's N Nerve Damage / Neuropathy N Arthritis N Sleep disorder/Insomnia N Infertility N Heart disease / Heart Attack N Crohn's Disease N HIV/AIDS N Stroke/TIA N Colon Problems N High Cholesterol N Serious Injuries N Kidney Disease N Memory Loss/Alzheimer's N Gallbladder disease N High blood pressure N Congestive heart failure N Falls N Alcohol Overuse N Blood Thinner Treatment N Hormone Replacement N Nervous Breakdown N Bajwa's Esophagus Y Anemia N Urinary Problems N Colon Polyps Y Gastritis N Hospitalizations (other than operations) N Back pain N Diabetes N Rheumatic Fever N Bleeding Disorder N Cardiac Arrhythmias /irregular heart rat e N Osteopenia/Osteoporosis N Anxiety/Stress N Asthma N Vision Problems N Erectile / Sexual Dysfunction N Ostomies (location) N Seizures N Jaundice N Sleep Apnea N Hepatitis N Past Reacton to Contrast Media N Cirrhosis N GERD/Ulcer Y Chicken Pox N Allergies (other than meds) N Immunizations Vaccine Type Date Status Provider Name and Address Organization Details Recorded Time Influenza, high-dose, trivalent, PF 06/06/2019 [facility] 01/01/2020 13:25:33 Influenza, high-dose, trivalent, PF 07/25/2018 [facility] 01/01/2020 13:25:33 Influenza, adjuvanted, quadrivalent, PF 06/20/2020 completed Kaylie Dan [facility], [facility] 09/05/2020 15:10:04 Past Encounters Encounter ID Performer Location Encounter Start Date Encounter Closed Date Diagnosis/Indication Diagnosis SNOMED-CT Code Diagnosis ICD10 Code [id number] Elissa Andino MD [facility] [address] [facility] [place] [place] [address] 03/24/2024 10:46:08 03/24/2024 16:37:43 Allergic rhinitis 82612373 J30.9 Gastroesop hageal reflux disease 626555867 K21.9 Hyperlipidemia 24050316 E78.5 Fatigue 27854049 R53.83 Impaired g lucose tolerance 2811527 R73.09 Increased frequency of urination 338020120 R35.0 [id number] Elissa Andino MD [facility] [address] [facility] [place] [address] 03/31/2024 11:36:26 03/31/2024 13:12:42 Hyperlipidemia 24167844 E78.5 Renal impairment 0102930 03 N28.9 Impaired g lucose tolerance 1591759 R73.09 Health Concerns Section Related Observation LastModified by Organization Detai ls LastModified Time None Recorded Concern Status LastModified by Organization Details LastModified Time None Recorded Payers Encounter Date Sequence Insurance Name Policy Number Policy Carrillo Covered Member ID Carrillo Member ID Guarantor Name 03/31/2024 1 [employer] (MEDICARE REPLACEMENT PPO) [id number] Dawit Emerson [id number] Dawit Emerson Notes Date Note Type Note Provider Name and Address Organization Details Recorded Time 03/31/2024 text/html HPI Notes: Abnormal Test Result Reported by patient. Reason for [...] consent to telehealth visit. Elissa Andino MD [address] [address], [place], [address], [facility] - [facility], [facility] 04/06/2024 20:29:32
[2024-04-29 17:00] LABS: Chloride* 102 mmol/L (96-114); Potassium* 4.1 mmol/L (3.6-5.1); Sodium* 135 mmol/L (135-149)
[2024-04-29 17:03] LABS: Anion Gap 7 mEq/L (7-15); Blood Urea Nitrogen* 20 mg/dL (7-30); Carbon Dioxide* 26 mmol/L (20-32); Creatinine* 1.1 mg/dL (0.5-1.5); Est. Creatinine Clearance* 58.51; Estimated Glomerular Filt Rate 67 ml/min; Glucose* 98 mg/dL (60-115)
[2024-04-29 17:04] LABS: Calcium* 9.2 mg/dL (8.4-10.6)
== END 2024-04-29 17:54 | disposition home or self-care (01) ==
PROVIDERS: Emergency Provider Student in an Organized Health Care Education/Training Program
DX: J18.9 Pneumonia, unspecified organism (principal)
CPT/HCPCS: 36415; 71250; 80048; 84484; 85025; 87631; 93005; 99283; 99284; 99285